=== PATIENT | male | born 1940 | race Caucasian/White ===

== ENCOUNTER 2019-05-15 12:34 | Inpatient (IN) | payer OTHER ==
[2019-05-15] VITALS: BP 132/70; BP 142/73
[~2019-05-15] VITALS: Ht 180.3 cm; Wt 100.0 kg
[2019-05-15] MEDS ORDERED: TOPROL XL25 MG PO (12:46)
[2019-05-15] MEDS ORDERED: CRESTOR10 MG PO (12:47)
[2019-05-15] MEDS ORDERED: FUROSEMIDE20 MG PO (12:47)
[2019-05-15] MEDS ORDERED: ELIQUIS5 MG PO (12:47)
[2019-05-15] MEDS ORDERED: SYMBICORT 16010.2 GM INH (12:52)
[2019-05-15] MEDS ORDERED: ALBUTEROL SULF8.5 GM INH (12:52)
[2019-05-15] MEDS ORDERED: SPIRIVA18 MCG INH (12:52)
[2019-05-15 13:16] LABS: BASOPHILS 0.4 % (0-2); EOSINOPHILS 0.8 % (0-7); HEMATOCRIT 34.1 % (42.0-54.0); HEMOGLOBIN 9.5 g/dL (13.5-17.5); IMMATURE GRANULOCYTES 0.2 % (0-5); LYMPHOCYTES 14.2 % (15-50); MCH 22.4 pg (26.0-34.0); MCHC 27.9 g/dL (31.0-37.0); MCV 80.2 fL (80.0-100.0); MEAN PLATELET VOLUME 9.9 fL (7.4-10.4); MONOCYTES 13.5 % (2-11); NEUTROPHILS 70.9 % (40-80); PLATELET COUNT 174 10x3/uL (130-400); RBC 4.25 10x6/uL (4.20-6.10); RDW 16.3 % (11.5-14.5); WBC 11.1 10x3/uL (4.8-10.8)
[2019-05-15 13:26] LABS: APTT 33.6 SECONDS (22.8-39.4); INR 2.22 (0.85-1.17); PROTIME 23.9 SECONDS (11.6-15.0)
[2019-05-15 13:40] LABS: ALBUMIN 3.1 g/dL (3.4-5.0); ALKALINE PHOSPHATASE 135 U/L (46-116); BILIRUBIN - TOTAL 2.66 mg/dL (0.2-1.3); CALC OSMOLALITY 283 mosm/kg (275-300); CALCIUM 9.1 mg/dL (8.5-10.1); CHLORIDE - SERUM 98 mmol/L (98-107); CREATINE KINASE 27 UL (21-232); CREATININE - SERUM 1.6 mg/dL (0.6-1.3); GLUCOSE 132 mg/dL (74-106); POTASSIUM - SERUM 4.3 mmol/L (3.5-5.1); PRO BNP 5457 pg/mL (0-450); PROTEIN - SERUM 7.6 g/dL (6.4-8.2); SODIUM 140 mmol/L (136-145); TROPONIN-I < 0.017 ng/mL (0.000-0.060); UREA NITROGEN 21 mg/dL (7-18); eGFR NON AFRICAN AMERICAN 45 mL/min (90-120)
[2019-05-15 13:42] LABS: CARBON DIOXIDE 40.7 mmol/L (21.0-32.0)
[2019-05-15 14:00] VITALS: BP 122/64
[2019-05-15 14:02] LABS: ALT (SGPT) 16 U/L (10-68); CKMB 0.7 U/L (0.0-3.6)
[2019-05-15 15:00] VITALS: BP 132/60
[2019-05-15 15:30] VITALS: BP 125/71
[2019-05-15 16:04] VITALS: BP 157/76
--- NOTE | 2019-05-15 16:51 | NUR ---
ARRIVE TO ROOM VIA STRETCHER FROM ER ACCOMPANIED BY STAFF. ALERT AND ORIENTED X4. REPORTS SEVERE WEAKNESS. REFUSE TO STAND ON STANDING SCALE FOR WEIGHT DUE TO WEAKNESS. NOT ENOUGH TELEMETRY MONITORS AT THIS TIME PER OCT DAIRY HELPER. SCDs ON. CONTINUE ADMISSION PROCESS AND SAFETY PRECAUTIONS.
--- NOTE | 2019-05-15 17:09 | NUR ---
UNABLE TO ADD PHARMACY. PATIENT STATES, "[facility]
[2019-05-15 17:43] VITALS: BP 157/76; BMI 31.0
--- NOTE | 2019-05-15 19:26 | NUR ---
WAS RESTING EARLIER ROUNDED NOW AND APPLIED TELEMETRY LCTA SKIN WARM AND DRY ASSISTED WITH COMFORT BED IS LOW AND LOCKED AND SR X2 AIR FLOW IS A BIT DEMINISHED ALL BASES O2 AT 4L/NC RT HAND SL SCD APPLIED ORDERED WELL
--- NOTE | 2019-05-16 03:31 | NUR ---
I have reviewed this patient and I concur with the Shift Assessment completed by the Licensed Practical Nurse today this shift.
[2019-05-16 04:00] VITALS: BP 124/76
[2019-05-16 07:14] LABS: BASOPHILS 0 % (0-2); EOSINOPHILS 0 % (0-7); HEMATOCRIT 29.4 % (42.0-54.0); HEMOGLOBIN 8.2 g/dL (13.5-17.5); LYMPHOCYTES 13.5 % (15-50); MCHC 27.9 g/dL (31.0-37.0); MCV 78.8 fL (80.0-100.0); MEAN PLATELET VOLUME 10.8 fL (7.4-10.4); MONOCYTES 4.4 % (2-11); NEUTROPHILS 82.1 % (40-80); PLATELET COUNT 190 10x3/uL (130-400); RBC 3.73 10x6/uL (4.20-6.10); RDW 16.6 % (11.5-14.5)
[2019-05-16 07:57] VITALS: BP 132/69
[2019-05-16 08:12] LABS: ANION GAP 9.5 mmol/L (8-16); CALCIUM 8.7 mg/dL (8.5-10.1); CREATININE - SERUM 1.6 mg/dL (0.6-1.3); MAGNESIUM - SERUM 1.9 mg/dL (1.8-2.4); PHOSPHOROUS 4.2 mg/dL (2.5-4.9)
[2019-05-16 08:16] LABS: CARBON DIOXIDE 40.5 mmol/L (21.0-32.0)
[2019-05-16 12:50] VITALS: BP 119/63
[2019-05-16 13:33] VITALS: Ht 180.3 cm; Wt 100.0 kg
--- NOTE | 2019-05-16 14:30 | MORECARE ---
CASE MANAGEMENT DISCHARGE SUMMARY PATIENT: SHERRY HOBSON UNIT: [id number] ADM DATE: 05/15/19 AGE: 78 : 40 SEX: M ROOM/BED: D.2105 AUTHOR: KARINE SANZ PHYSICIAN: REFERRING PHYSICIAN: CHANTEL BECERRA MD DATE OF SERVICE: 05/16/19 Discharge Plan Patient Name: SHERRY HOBSON Facility: [facility]:[place] : 1940 Planned Disposition: [facility] facility Anticipated Discharge Date: Discharge Date: Expected LOS: Initial Reviewer: [email or web address] Initial Review Date: 05/15/2019 Generated: 05/16/19 3:29 pm DCP- Discharge Planning Updated by [email or web address]: Shayna Snyder on 05/15/19 5:[address] Patient has VA and Medicare A/B CM contacted Veronica WILKES @[phone]. Provided required information for patient and MD. Per ER MD, patient is not stable to transfer at this time. Shayna Snyder RN Patient Name: SHERRY HOBSON Page 60035 at 1430 All edits/amendments must be made on the electronic document DICTATION DATE: 05/16/191428 AIRPLANE FIRST OFFICER: RADHA 05/16/191428 RPT#: [id number] DC DATE: STATUS: ADM IN [facility] [address] [place] [address] END OF REPORT
--- NOTE | 2019-05-16 14:42 | MORECARE ---
CASE MANAGEMENT DISCHARGE SUMMARY PATIENT: SHERRY HOBSON UNIT: [id number] ADM DATE: 05/15/19 AGE: 78 : 40 SEX: M ROOM/BED: D.2105 AUTHOR: KARINE SANZ PHYSICIAN: REFERRING PHYSICIAN: CHANTEL BECERRA MD DATE OF SERVICE: 05/16/19 Discharge Plan Patient Name: SHERRY HOBSON Facility: [facility]:[place] : 1940 Planned Disposition: [facility] facility Anticipated Discharge Date: Discharge Date: Expected LOS: Initial Reviewer: [email or web address] Initial Review Date: 05/15/2019 Generated: 05/16/19 3:42 pm DCP- Discharge Planning Updated by [email or web address]: Shayna Snyder on 05/15/19 5:[address] Patient has VA and Medicare A/B CM contacted Veronica WILKES @[phone]. Provided required information for patient and MD. Per ER MD, patient is not stable to transfer at this time. Shayna Snyder RN DCPIA - Discharge Planning Initial Assessment Updated by [email or web address]: Jake Alvarez on 05/16/19 2:31 pm * Is the patient Alert and Oriented? Yes * How many steps to enter\exit or inside your home? 0-O / 1-I * PCP [facility] [place] * [facility] * Preadmission Environment Home with Family * ADLs Independent * Equipment Cane Oxygen Walker * Other Equipment HOME AND PORTABLE OXYGEN [employer] - MEDICAL EQUIPMENT PROVIDER * List name and contact numbers for known caregivers / representatives who currently or will assist patient after discharge: JUDAH HOBSON, SPOUSE, * Verbal permission to speak to the caregivers and representatives has been obtained from the patient. N/A * Community resources currently utilized None * Please name any agencies selected above. NONE * Additional services required to return to the preadmission environment? No * Can the patient safely return to the preadmission environment? Yes * Has this patient been hospitalized within the prior 30 days at any hospital? No Last DP export: 05/16/19 1:30 p Patient Name: SHERYR HOBSON Page 35889 at 1442 All edits/amendments must be made on the electronic document DICTATION DATE: 05/16/191441 WELDER/FABRICATOR: RADHA 05/16/191441 RPT#: [id number] DC DATE: STATUS: ADM IN [facility] [address] [place] [address] END OF REPORT
--- NOTE | 2019-05-16 15:10 | MORECARE ---
CASE MANAGEMENT DISCHARGE SUMMARY PATIENT: SHERRY HOBSON UNIT: [id number] ADM DATE: 05/15/19 AGE: 78 : 40 SEX: M ROOM/BED: D.2108 AUTHOR: YVON,DOC PHYSICIAN: REFERRING PHYSICIAN: CHANTEL BECERRA MD DATE OF SERVICE: 05/16/19 Discharge Plan Patient Name: SHERRY HOBSON Facility: [facility]:[place] : 1940 Planned Disposition: VA facility Anticipated Discharge Date: Discharge Date: Expected LOS: Initial Reviewer: [email or web address] Initial Review Date: 05/15/2019 Generated: 05/16/19 4:10 pm Comments DCP- Discharge Planning Updated by [email or web address]: Jake Alvarez on 05/16/19 2:[address] Patient Name: SHERRY HOBSON Admission Status: ER Accout number: [id number] Admission Date: 05-15-2019 : 1940 Admission Diagnosis:SHORTNESS OF BREATH Attending: CHANTEL BECERRA Current LOS: 1 Anticipated DC Date: Planned Disposition: [facility] facility Primary Insurance: [employer] ADMINISTRATION PLANNED EXTERNAL P Discharge Planning Comments: CM MET WITH PT IN ROOM TO DISCUSS DISCHARGE PLANNING AND NEEDS. PT REPORTS LIVING AT HOME INDEPENDENTLY WITH HIS . PT HAS HOME AND PORT[facility]GEN FROM [facility]. PT HAS NO OUTSIDE SERVICES ASSISTING IN THE HOME. CM DISCUSSED AVAILABILITY OF HOME HEALTH, REHAB SERVICES AND MEDICAL EQUIPMENT. PT DENIES DISCHARGE NEEDS, IS WILLING FOR VA TRANSFER AND DOES NOT KNOW IF THE VA WAS CONTACTED. PT REPORTS BEING SENT TO THE ER FROM THE [place] [facility]. CM CALLED [place] EXPEDITOR, , SPOKE TO YUNI WHO ADVISED THAT PT IS ALREADY ON THE TRANSFER LIST, CM UPDATED UNIT INFORMATION FOR TRANSFER IF BED BECOMES AVAILABLE. CM TO CONTINUE TO FOLLOW AND ASSIST NEEDED. Shellfish Dredge Operator: Jake Alvarez DCP- Discharge Planning Updated by [email or web address]: Shayna Snyder on 05/15/19 5:[address] Patient has VA and Medicare A/B CM contacted Veronica WILKES @[phone]. Provided required information for patient and MD. Per ER MD, patient is not stable to transfer at this time. Shayna Snyder RN DCPIA - Discharge Planning Initial Assessment Updated by [email or web address]: Jake Alvarez on 05/16/19 2:31 pm * Is the patient Alert and Oriented? Yes * How many steps to enter\exit or inside your home? 0-O / 1-I * PCP [place] [facility] [place] * [facility] * Preadmission Environment Home with Family * ADLs Independent * Equipment Cane Oxygen Walker * Other Equipment HOME AND PORTABLE OXYGEN [employer] - MEDICAL EQUIPMENT PROVIDER * List name and contact numbers for known caregivers / representatives who currently or will assist patient after discharge: JUDAH HOBSON, SPOUSE, * Verbal permission to speak to the caregivers and representatives has been obtained from the patient. N/A * Community resources currently utilized None * Please name any agencies selected above. NONE * Additional services required to return to the preadmission environment? No * Can the patient safely return to the preadmission environment? Yes * Has this patient been hospitalized within the prior 30 days at any hospital? No Last DP export: 05/16/19 1:42 p Patient Name: SHERRY HOBSON Page 19520 at 1510 All edits/amendments must be made on the electronic document DICTATION DATE: 05/16/191509 CARBURETOR SPECIALIST: RADHA 05/16/191509 RPT#: [id number] DC DATE: STATUS: ADM IN [facility] [address] [place] [address] END OF REPORT
[2019-05-16 16:52] VITALS: BP 128/64
--- NOTE | 2019-05-16 19:25 | NUR ---
AWAKE AND ALERT REQUIRED BED CHANGE AT THIS TIME DUE TO INCONTANACE OF URINE LCTA DEMINISHED LOWER BASES SKIN WARM AND DRY O2 AT 3.5L/MBED IS LOW AND LOCKED AND CALL LIGHT IN REACH OF PT PT WAS ABLE TO AMBULATE EASIER TO REST ROOM THEN PREVIOUS NIGHT TOLERATED ALL WELL
[2019-05-16 20:00] VITALS: BP 127/60
[2019-05-17] VITALS: BP 130/62
[2019-05-17 04:00] VITALS: BP 136/64
[2019-05-17 05:39] LABS: BASOPHILS 0.1 % (0-2); EOSINOPHILS 0.2 % (0-7); HEMOGLOBIN 7.9 g/dL (13.5-17.5); IMMATURE GRANULOCYTES 0.3 % (0-5); LYMPHOCYTES 14.7 % (15-50); MCH 22.4 pg (26.0-34.0); MCHC 28.2 g/dL (31.0-37.0); MCV 79.3 fL (80.0-100.0); MEAN PLATELET VOLUME 10.4 fL (7.4-10.4); MONOCYTES 10.4 % (2-11); NEUTROPHILS 74.3 % (40-80); PLATELET COUNT 198 10x3/uL (130-400); RBC 3.53 10x6/uL (4.20-6.10); RDW 16.7 % (11.5-14.5)
[2019-05-17 06:08] LABS: CALCIUM 8.7 mg/dL (8.5-10.1); CREATININE - SERUM 1.6 mg/dL (0.6-1.3); POTASSIUM - SERUM 3.7 mmol/L (3.5-5.1)
[2019-05-17 06:39] LABS: WBC 9.9 10x3/uL (4.8-10.8)
[2019-05-17 06:47] LABS: ANION GAP 2.8 mmol/L (8-16)
[2019-05-17 06:48] LABS: CARBON DIOXIDE 47.9 mmol/L (21.0-32.0)
--- NOTE | 2019-05-17 07:28 | NUR ---
INITIAL ROUNDING, BEDSIDE SHIF REPORT COMPLETE. PATIENT IS AWAKE, SEMI FOWLERS POSITION, DENIES PAIN, O2 AND SCD'S IN PLACE, HE IS CURRENTLY HAVING A BREATHING TREATMENT. TELE MOITOR IN PLACE. HE DENIES ANY NEEDS, CALL LIGHT IN REACH
[2019-05-17 08:30] VITALS: BP 110/67
[2019-05-17 12:59] VITALS: BP 120/60
[2019-05-17 16:04] VITALS: BP 123/72
--- NOTE | 2019-05-17 16:21 | NUR ---
UA COLLECTED AND TAKEN TO LAB
[2019-05-17 17:21] LABS: APPEARANCE CLEAR (CLEAR); BILIRUBIN NEGATIVE (NEGATIVE); COLOR STRAW (YELLOW); GLUCOSE NEGATIVE (NEGATIVE); KETONE NEGATIVE (NEGATIVE); NITRITE NEGATIVE (NEGATIVE); PROTEIN NEGATIVE (NEGATIVE); UROBILINOGEN NORMAL (NORMAL)
[2019-05-17 17:26] LABS: BACTERIA FEW /hpf (NONE SEEN); RED CELLS - URINE OCC /hpf (0-5); WHITE CELLS - URINE 0-5 /hpf (0-5)
[2019-05-17 20:00] VITALS: BP 114/63
--- NOTE | 2019-05-17 20:06 | NUR ---
EVENING ROUNDS COMPLETED. VSS, AAOX4, PT IN BED WITH EYES OPEN. ASSIST PT TO EMPTY USRINAL. PT PUT 350CC'S. PT DENIES ANY FURTHER NEEDS AT THIS TIME. WILL CPOC. CL WITHIN REACH.
[2019-05-18] VITALS: BP 141/73
[2019-05-18 04:00] VITALS: BP 143/71
[2019-05-18 05:39] LABS: BASOPHILS 0.3 % (0-2); HEMATOCRIT 31.4 % (42.0-54.0); HEMOGLOBIN 8.7 g/dL (13.5-17.5); IMMATURE GRANULOCYTES 0.2 % (0-5); LYMPHOCYTES 25.2 % (15-50); MCH 22.1 pg (26.0-34.0); MCHC 27.7 g/dL (31.0-37.0); MCV 79.7 fL (80.0-100.0); MEAN PLATELET VOLUME 10.6 fL (7.4-10.4); MONOCYTES 11.9 % (2-11); NEUTROPHILS 60.4 % (40-80); PLATELET COUNT 210 10x3/uL (130-400); RBC 3.94 10x6/uL (4.20-6.10); RDW 16.9 % (11.5-14.5); WBC 9.7 10x3/uL (4.8-10.8)
[2019-05-18 05:55] LABS: CALCIUM 8.8 mg/dL (8.5-10.1); CREATININE - SERUM 1.8 mg/dL (0.6-1.3); POTASSIUM - SERUM 3.7 mmol/L (3.5-5.1)
[2019-05-18 06:23] LABS: ANION GAP 4.3 mmol/L (8-16)
[2019-05-18 06:24] LABS: CARBON DIOXIDE 48.4 mmol/L (21.0-32.0)
--- NOTE | 2019-05-18 07:30 | NUR ---
PT RESTING LATERAL WITH BED AT AN INCLINE, BIPAP MACHINE PLACED BY RT THIS MORNING, INSTRUCTED TO LEAVE IN PLACE UNTIL RT RETURNS TO TAKE IT OFF. PT IS RESTING COMFORTABLY WITH EYES CLOSED, BREATHING EVEN AND UNLABORED NO S/S OF DISTRESS NOTED. WILL CTM.
[2019-05-18 09:23] VITALS: BP 129/75
--- NOTE | 2019-05-18 11:00 | NUR ---
ADMINISTERED MEDICATION AT THIS TIME, NO TROUBLE SWALLOWING. HELPED PT READJUST IN BED. FAMILY AT BED SIDE. DENIES ANY NEEDS AT THIS TIME. PT IS WEARING SCD'S. BED IN LOWEST POSITION, BED RAILS X2, CALL LIGHT WITHIN REACH. WILL CTM.
--- NOTE | 2019-05-18 11:46 | NUR ---
DR. TYLER INSTRUCTED TO LOWER PT NASAL CANNULA OXYGEN FROM 4L TO 2L. I TURNED PT OXYGEN DOWN TO 3L, WILL TURN DOWN TO 2L IF TOLERATED. DENIES ANY NEEDS. WILL CTM.
[2019-05-18 13:30] VITALS: BP 110/61
--- NOTE | 2019-05-18 15:02 | NUR ---
ADMINISTERED PRN HYDRALAZINEFOR ELEVATED BP. PT HAD NO TROUBLE SWALLOWING. SITTING IN BEDSIDE CHAIR, REFUSES TO GET BACK IN BED. DENIES ANY NEEDS. WILL CTM.
--- NOTE | 2019-05-18 16:08 | NUR ---
PT RESTING COMFORTABLY IN BED WITH EYES CLOSED, BREATHING EVEN AND UNLABORED. NO S/S OF DISTRESS NOTED. BED IN LOWEST POSITION, BED RAILS X2, CALL LIGHT WITHIN REACH. WILL CTM.
--- NOTE | 2019-05-18 16:28 | NUR ---
ADMINISTERED IV LASIX AT THIS TIME OVER 3 MINUTES, TOLERATED WELL. DENIES ANY NEEDS AT THIS TIME. WILL CTM.
[2019-05-18 17:29] VITALS: BP 107/67
--- NOTE | 2019-05-18 19:50 | NUR ---
ROUND COMPLETED. VSS. AAOX4, PT C/O OF LOWER ABDOMINAL PAIN. STATES HE HAS BEEN TRYING TO EMPTY HIS BLADDER ALL DAY BUT HE IS GETTING LITTLE OR NO URINE. HE STATES HE USUALLY HAVE THIS EPISODE AT HOME PRIOR TO ADMISSION TO THE HOSPITAL. HE ALSO STATES HIS PRIMARY DOCTOR PROVIDED HIM WITH A COUDE CATH TO DRAIN HIS URINE AT HOME, WHENEVER HE HAVE SUCH EPISODES. HE C/O PAIN IN HIS LOWER ABDOMEN AT THIS TIME. PT DENIES ANY FURTHER NEEDS FOR COMFORT CARE. WILL PERFORM A BLADDER SCAN TO RULE OUT URINARY RETENTION. CL WITHIN REACH. CONTNUOS O2 MONITOR IN PLACE. PROVIDED PT A BEDSIDE COMODE AT THIS TIME. WILL CTM.
[2019-05-18 20:00] VITALS: BP 149/74
--- NOTE | 2019-05-18 20:00 | NUR ---
PERFORMED A BLADDER ON PT. PT IS RETAINING 700CC'S AT THIS TIME. WILL NOTIFY SOLAR INSTALLATION CREW SUPERVISOR, DUE TO PT'S HX OF BPH.
--- NOTE | 2019-05-18 20:22 | NUR ---
DEL RAJAN STATES TO TRY TO USE A COUDE 16F ON PT TO DRAIN BLADDER AND LEAVE IT IN. HE ALSO ORDERED 2MG IV MORPHINE PRN Q4HRS. AND TO GIVE A ONE TIME DOSE IF NEEDED PRIOR TO GARLAND INSERTION.
--- NOTE | 2019-05-18 20:30 | NUR ---
TRIED TO INSERT A COUDE WITHOUT ANY SUCCESS. PT HAD MINIMAL BLEEDING ON TIP OF CATH, APPEARS LIKE BLOOD CLOT. DID NOT PROCEED FURTHER DUE TO PT'S HX OF BPH. NOTIFIED SATINDER MATHIS. HE STATES TO CONSULT UROLOGY, DR. LAMA. UROLOGY CONSULTED AND PAGED. AWAITING RESPONSE.
--- NOTE | 2019-05-18 21:23 | NUR ---
DR. LAMA STATES TO PREP PT FOR EMERGENCY SURGERY. PT PREPPED. CONSENT SIGNED. AWAITING OR TEAM. HEALTH SUPPORT SPECIALIST STATES OR TEAM WAS PAGED AND READY FOR PROCEDURE.
--- NOTE | 2019-05-18 22:20 | NUR ---
PT OUT FOR GARLAND CATH INSERION WITH POSSIBLE CYSTOSCOPY. ELIQUIS AND OTHER PM MEDS WILL RESTART NEXT DOSE.
--- NOTE | 2019-05-18 23:20 | NUR ---
PT BACK FROM OR. RECIEVED REPORT FROM NATALIIA MARIANO. STATES PT WAS GIVEN ANCEF, PROPOFOL AND FENTANYL @ PROCEDURE. VSS ON ARRIVAL TO UNIT, STILL APPEARS MINIMALLY SEDATED. O2SAT OF 90. GARLAND INTACT, BLOODY URINE NOTED ON ASSESSMENT. WILL NOTIFY RESP THERAPIST TO RESTART BIPAP. SCD'S AND GARLAND ON. PT DENIES ANY FURHTER NEEDS AT THIS TIME. 1050CC'S INITIAL OUTPUT WAS OBTAINED IN OR. WILL CTM. CL WITHIN REACH, BED IN LOW, SR UP X2.
[2019-05-19] VITALS: BP 116/56
--- NOTE | 2019-05-19 | NUR ---
PT PLACED ON BIPAP. NO S/S OF DISTRESS. WILL CTM.
[2019-05-19 04:00] VITALS: BP 109/54
[2019-05-19 05:28] LABS: BASOPHILS 0.2 % (0-2); EOSINOPHILS 1.4 % (0-7); HEMATOCRIT 30.7 % (42.0-54.0); HEMOGLOBIN 8.4 g/dL (13.5-17.5); IMMATURE GRANULOCYTES 0.2 % (0-5); LYMPHOCYTES 14.9 % (15-50); MCH 21.8 pg (26.0-34.0); MCHC 27.4 g/dL (31.0-37.0); MCV 79.7 fL (80.0-100.0); MEAN PLATELET VOLUME 9.9 fL (7.4-10.4); MONOCYTES 12.8 % (2-11); NEUTROPHILS 70.5 % (40-80); PLATELET COUNT 191 10x3/uL (130-400); RBC 3.85 10x6/uL (4.20-6.10); RDW 16.8 % (11.5-14.5); WBC 9.4 10x3/uL (4.8-10.8)
[2019-05-19 05:49] LABS: ANION GAP 2.7 mmol/L (8-16); CALCIUM 8.6 mg/dL (8.5-10.1); CREATININE - SERUM 2.1 mg/dL (0.6-1.3); POTASSIUM - SERUM 3.4 mmol/L (3.5-5.1)
[2019-05-19 05:52] LABS: CARBON DIOXIDE 47.7 mmol/L (21.0-32.0)
--- NOTE | 2019-05-19 06:56 | NUR ---
PT RESTING IN BED AT THIS TIME. NO S/S OF DISTRESS. PT DENIES ANY FURTHER NEEDS AT THIS TIME. BIPAP OFF O2 @ 4L. 02SAT @ 95. WILL CPOC.
--- NOTE | 2019-05-19 07:45 | NUR ---
A/A/OX4. DENIES ANY PAIN AT PRESENT TIME AND NO REQUESTS VOICED. GARLAND PATENT AND DRAINING BLOODY URINE TO BEDSIDE DRAINAGE. SL PATENT TO RIGHT HAND WITH REDNESS OR EDEMA AT SITE. 02 AT 4L/M PER N/C. CONTINUOUS PULSE OX IN PLACE WITH READING OF 96. 02 DOWN TO 3.5 L/M TO WEAN ORDERED. BED IN LOW LOCKED POSITION, CALL LIGHT IN REACH AND SIDE RAILS UP X 2. ASSESSMENT COMPLETED AND WILL CONTINUE POC.
--- NOTE | 2019-05-19 08:50 | OP ---
PATIENT NAME: SHERRY HOBSON MEDICAL RECORD: [id number] :[birth year] LOCATION:D.M2 D.2105 ADMISSION DATE:05/15/19 SURGEON: WILLIAM LAMA MD DATE OF OPERATION: 05/18/2019 SURGEON: William Lama MD ANESTHESIA: General anesthesia by Edward Partida CRNA DIAGNOSES: Urinary retention with acute renal failure due to obstructive benign prostatic hyperplasia. PROCEDURES: Cystoscopy, Quevedo catheter insertion over a guidewire. FINDINGS: Obstructive benign prostatic hypertrophy with bilateral lateral lobe hyperplasia, minimal median lobe. Single ureteral orifices bilaterally with no bladder tumors seen. Postvoid residual 1050 mL. BLOOD LOSS: None. CLINICAL HISTORY: This is a 78-year-old male, who was admitted to hospital for COPD exacerbation. He has a history of BPH, which is being treated at the [facility] with medications. Today, he was unable to void and this was finally noticed by the nurse who came on shift in the evenings. A bladder scan that was done by his nurse showed that the bladder held over 700 mL of urine. Attempts to place an indwelling Quevedo catheter using a coude catheter were unsuccessful. Therefore, the urological consultation was called around 9:30 p.m. today. I have called the OR crew for a cystoscopy with insertion of the Quevedo catheter over a guidewire. The patient is on Eliquis for atrial fibrillation. I have also noted that he last ate at 5:00 p.m. when he had dinner. Since we are only about 4 hours since that time, the SEW OUT OPERATOR will be giving him general anesthetic. We gave him Ancef 2 grams IV online marketing analyst to the OR. DESCRIPTION OF PROCEDURE: The patient was given induction of general anesthesia in supine position. He was then placed into dorsal lithotomy position and prepped and draped. We used a 21-Slovak cystoscope with 30-degree lens for visualization. The prostatic urethra was long and obstructive in the lateral lobes. There was no significant median lobe. Going into the bladder, no bladder tumors were seen. There are single ureteral orifices on each side. A Sensor wire was placed through the scope into the bladder. The scope was then removed, leaving the wire in place. Over the wire, we inserted a 16-Slovak nottaw[place]ppi [place] tip Quevedo catheter. Once the Quevedo catheter was entirely in the bladder, we inflated the balloon with 10 cc of sterile water. The wire was then withdrawn entirely. The catheter was put to bag drainage. The patient will be brought back to the recovery room and then to his room in the hospital. TRANSINT:[id number] Voice Confirmation ID: [id number] DOCUMENT ID: [id number] OPERATIVE REPORT [id number] SHERRY HOBSON ROBERT S MD at 0850 CC: [id number] DICTATION DATE: 05/18/192302 MEMBERSHIP SALES MANAGER: 05/18/19 2340 ADM IN [place] [id number] [place] [id number]
[2019-05-19 09:58] VITALS: BP 114/60
--- NOTE | 2019-05-19 12:44 | NUR ---
Nutrition Follow-up: Pt continues to report good appetite/PO intake. Diet: Regular Wt: 222# Last BM: 05/18 Labs reviewed Meds reviewed Rec cardiac diet. [place] food preferences. RD following.
--- NOTE | 2019-05-19 12:45 | NUR ---
LARGE AMT OF BLOOD NOTED UNDER TAPE OF SL. REDRESSED AND IS STILL IN PLACE AND FLUSHES WELL.
--- NOTE | 2019-05-19 14:18 | NUR ---
Rehab Prescreening Consult recieved and the chart has been reviewed. [facility] which [facility] acute rehab does not have a contract with. Discussed with the CM Jaquan Alvarez. Abida Hoang RN Clinical Liaison, Rehab
--- NOTE | 2019-05-19 14:50 | MORECARE ---
CASE MANAGEMENT DISCHARGE SUMMARY PATIENT: SHERRY HOBSON UNIT: [id number] ADM DATE: 05/15/19 AGE: 78 : 40 SEX: M ROOM/BED: D.2108 AUTHOR: YVON,DOC PHYSICIAN: REFERRING PHYSICIAN: CHANTEL BECERRA MD DATE OF SERVICE: 05/19/19 Discharge Plan Patient Name: SHERRY HOBSON Facility: [facility]:[place] : 1940 Planned Disposition: Home Anticipated Discharge Date: 05/19/19 Discharge Date: Expected LOS: 4 Initial Reviewer: [email or web address] Initial Review Date: 05/15/2019 Generated: 05/19/19 3:49 pm DCP- Discharge Planning Updated by [email or web address]: Jake Alvarez on 05/16/19 2:[address] Patient Name: SHERRY HOBSON Admission Status: ER Accout number: [id number] Admission Date: 05-15-2019 : 1940 Admission Diagnosis:SHORTNESS OF BREATH Attending: CHANTEL BECERRA Current LOS: 1 Anticipated DC Date: Planned Disposition: [facility] facility Primary Insurance: [employer] ADMINISTRATION PLANNED EXTERNAL P Discharge Planning Comments: CM MET WITH PT IN ROOM TO DISCUSS DISCHARGE PLANNING AND NEEDS. PT REPORTS LIVING AT HOME INDEPENDENTLY WITH HIS . PT HAS HOME AND PORTABLE OXYGEN FROM THE [facility]. PT HAS NO OUTSIDE SERVICES ASSISTING IN THE HOME. CM DISCUSSED AVAILABILITY OF HOME HEALTH, REHAB SERVICES AND MEDICAL EQUIPMENT. PT DENIES DISCHARGE NEEDS, IS WILLING FOR VA TRANSFER AND DOES NOT KNOW IF THE VA WAS CONTACTED. PT REPORTS BEING SENT TO THE ER FROM THE [place] [facility]. CM CALLED [place] EXPEDITOR, , SPOKE TO YUNI WHO ADVISED THAT PT IS ALREADY ON THE TRANSFER LIST, CM UPDATED UNIT INFORMATION FOR TRANSFER IF BED BECOMES AVAILABLE. CM TO CONTINUE TO FOLLOW AND ASSIST NEEDED. First Aid Teacher: Jake Alvarez DCP- Discharge Planning Updated by [email or web address]: Shayna Snyder on 05/15/19 5:[address] Patient has VA and Medicare A/B CM contacted Veronica WILKES @[phone]. Provided required information for patient and MD. Per ER MD, patient is not stable to transfer at this time. Shayna Snyder RN DCPIA - Discharge Planning Initial Assessment Updated by [email or web address]: Jake Alvarez on 05/16/19 2:31 pm * Is the patient Alert and Oriented? Yes * How many steps to enter\exit or inside your home? 0-O / 1-I * PCP [facility] [place] * [facility]acy [facility] * Preadmission Environment Home with Family * ADLs Independent * Equipment Cane Oxygen Walker * Other Equipment HOME AND PORTABLE OXYGEN [employer] - MEDICAL EQUIPMENT PROVIDER * List name and contact numbers for known caregivers / representatives who currently or will assist patient after discharge: JUDAH HOBSON, SPOUSE, * Verbal permission to speak to the caregivers and representatives has been obtained from the patient. N/A * Community resources currently utilized None * Please name any agencies selected above. NONE * Additional services required to return to the preadmission environment? No * Can the patient safely return to the preadmission environment? Yes * Has this patient been hospitalized within the prior 30 days at any hospital? No Last DP export: 05/16/19 2:10 p Patient Name: SHERRY HOBSON Page 85037 at 1450 All edits/amendments must be made on the electronic document DICTATION DATE: 05/19/191448 TREAD CUTTER: RADHA 05/19/191448 RPT#: [id number] DC DATE: STATUS: ADM IN [facility] [address] [place] [address] END OF REPORT
--- NOTE | 2019-05-19 14:58 | MORECARE ---
CASE MANAGEMENT DISCHARGE SUMMARY PATIENT: SHERRY HOBSON UNIT: [id number] ADM DATE: 05/15/19 AGE: 78 : 40 SEX: M ROOM/BED: D.2105 AUTHOR: YVON,DOC PHYSICIAN: REFERRING PHYSICIAN: CHANTEL BECERRA MD DATE OF SERVICE: 05/19/19 Discharge Plan Patient Name: SHERRY HOBSON Facility: [facility]:[place] : 1940 Planned Disposition: Home Anticipated Discharge Date: 05/19/19 Discharge Date: Expected LOS: 4 Initial Reviewer: [email or web address] Initial Review Date: 05/15/2019 Generated: 05/19/19 3:57 pm Comments DCP- Discharge Planning Updated by [email or web address]: Jake Alvarez on 05/19/19 1:[address] Patient Name: SHERRY HOBSON Encounter No: [id number] : 1940 Primary Insurance: [employer]ISTRATION Anticipated DC Date: 05-19-2019 Planned Disposition: Home DCP follow-up note: CM RECEIVED ORDER FOR INPATIENT REHAB, CM SPOKE TO PT IN ROOM REGARDING INPATIENT REHAB AT THE [facility] AND [facility]OUGH THE [place]. PT REFUSED TO LET CM ATTEMPT TO SEND HIM TO THE [facility]PATIENT OR [facility] RE[facility]AB. PT STATES HE WILL GO HOME AND HIS MAY PAY PRIVATELY FOR OUTPATIENT REHAB AT [facility]. PT AND SPOUSE DENIED DISCHARGE NEEDS AT THIS TIME. PT HAS CM CONTACT NUMBER AND CM INSTRUCTED PT AND SPOUSE TO CALL CM IF THERE IS ANYTHING CM CAN DO FOR THEM. PT PLANS TO DISCHARGE HOME WITH . DR. BECERRA NOTIFIED. BETTIE Durant MANGEMENT DCP- Discharge Planning Updated by [email or web address]: Jake Alvarez on 05/16/19 2:[address] Patient Name: SHERRY HOBSON Admission Status: ER Accout number: [id number] Admission Date: 05-15-2019 : 1940 Admission Diagnosis:SHORTNESS OF BREATH Attending: CHANTEL BECERRA Current LOS: 1 Anticipated DC Date: Planned Disposition: [place] facility Primary Insurance: [facility] [place] ADMINISTRATION PLANNED EXTERNAL P Discharge Planning Comments: CM MET WITH PT IN ROOM TO DISCUSS DISCHARGE PLANNING AND NEEDS. PT REPORTS LIVING AT HOME INDEPENDENTLY WITH HIS . PT [facility] HOME AND [facility]GEN [facility]. PT HAS NO OUTSIDE SERVICES ASSISTING IN THE HOME. CM DISCUSSED AVAILABILITY OF HOME HEALTH, REHAB SERVICES AND MEDICAL EQUIPMENT. PT DENIES DISCHARGE NEEDS, IS WILLING FOR VA TRANSFER AND DOES NOT KNOW IF THE VA WAS CONTACTED. PT RE[place]TS BEING S[facility] [place] [facility] [place] [facility]. CM CALLED [place] EXPEDIT[place], , SPOKE TO YUNI WHO ADVISED THAT PT IS ALREADY ON THE TRANSFER LIST, CM UPDATED UNIT INFORMATION FOR TRANSFER IF BED BECOMES AVAILABLE. CM TO CONTINUE TO FOLLOW AND ASSIST NEEDED. Family Practice Physician: Jake Alvarez DCP- Discharge Planning Updated by [email or web address]: Shayna Snyder on 05/15/19 5:[address] Patient has [facility] and Medicare A/B CM contacted Veronica CHUNG @[phone]. Provided required information for patient and MD. Per ER MD, patient is not stable to transfer at this time. Shayna Snyder RN DCPIA - Discharge Planning Initial Assessment Updated by [email or web address]: Jake Alvarez on 05/16/19 2:31 pm * Is the patient Alert and Oriented? Yes * How many steps to enter\exit or inside your home? 0-O / 1-I * PCP [facility] [place] * [facility]acy [facility] * Preadmission Environment Home with Family * ADLs Independent * Equipment Cane Oxygen Walker * Other Equipment HOME AND PORTABLE OXYGEN [employer] - MEDICAL EQUIPMENT PROVIDER * List name and contact numbers for known caregivers / representatives who currently or will assist patient after discharge: JUDAH HOBSON, SPOUSE, * Verbal permission to speak to the caregivers and representatives has been obtained from the patient. N/A * Community resources currently utilized None * Please name any agencies selected above. NONE * Additional services required to return to the preadmission environment? No * Can the patient safely return to the preadmission environment? Yes * Has this patient been hospitalized within the prior 30 days at any hospital? No Last DP export: 05/19/19 1:50 p Patient Name: SHERRY HOBSON Page 98230 at 2931 All edits/amendments must be made on the electronic document DICTATION DATE: 05/19/191456 ADMINISTRATIVE ASSOCIATE: RADHA 05/19/191456 RPT#: [id number] DC DATE: STATUS: ADM IN [facility] [address] [place] [address] END OF REPORT
--- NOTE | 2019-05-19 17:13 | NUR ---
HAVE WEANED PT DOWN TO 2L/M PER N/C WITH PULSE OX READING 94%. DENIES ANY SOB AT PRESENT TIME, BUT DID GET SOB WHEN AMBULATING WITH PT. AMBULATED 250 FT.
[2019-05-19 17:59] VITALS: BP 105/61
--- NOTE | 2019-05-19 19:23 | NUR ---
REPORT RECEIVED FROM DAY SHIFT, PT CARE ASSUMED. INTRODUCED SELF AND WROTE NAME ON BOARD. PT SITTING UP IN BED, AAOX4. PT DENIES PAIN OR ANY OTHER NEEDS AT THIS TIME. FAMILY AT BEDSIDE. BED IN LOWEST POSITION, SR X2, CALL LIGHT WITHIN REACH. WILL CONTINUE TO MONITOR.
--- NOTE | 2019-05-19 19:50 | NUR ---
EVENING ROUND COMPLETED. AAOX3, VSS, NO S/S OF DISTRESS. BIPAP @ BEDSIDE. 02 4L. O2SAT 95 @ THIS TIME. GARLAND INTACT WITH JENNY COLORED DRAINAGE. PT DENIES ANY NEED FOR PAIN AT THIS TIME. FAMILY @ BEDSIDE. WILL CPOC. CL WITHIN REACH, BED IN LOW, SR UP X2.
[2019-05-19 20:00] VITALS: BP 112/56
--- NOTE | 2019-05-19 22:51 | NUR ---
PT IN BED, RT @ BEDSIDE TO PLACED PT ON BIPAP. PT DENIES ANY NEED FOR COMFORT CARE. WILL CTM.
[2019-05-20] VITALS: BP 99/48
--- NOTE | 2019-05-20 01:34 | NUR ---
PT TOOK OFF HIS BIPAP MACHINE. STATES HE FEELS CLAUSTROPHOBIC. HE STATES HE WILL PUT IT BACK ON WHENEVER HE IS READY. PT CURRENTLY ON 02 @ 4L. SAT 96.
[2019-05-20 04:00] VITALS: BP 110/59
[2019-05-20 05:05] LABS: BASOPHILS 0.2 % (0-2); EOSINOPHILS 3.4 % (0-7); HEMATOCRIT 29.9 % (42.0-54.0); HEMOGLOBIN 8.1 g/dL (13.5-17.5); IMMATURE GRANULOCYTES 0.2 % (0-5); LYMPHOCYTES 15.9 % (15-50); MCHC 27.1 g/dL (31.0-37.0); MEAN PLATELET VOLUME 10.4 fL (7.4-10.4); MONOCYTES 10.5 % (2-11); NEUTROPHILS 69.8 % (40-80); PLATELET COUNT 195 10x3/uL (130-400); RBC 3.69 10x6/uL (4.20-6.10); RDW 16.8 % (11.5-14.5); WBC 8.9 10x3/uL (4.8-10.8)
[2019-05-20 05:14] LABS: ANION GAP 0.4 mmol/L (8-16); CALCIUM 8.6 mg/dL (8.5-10.1); CREATININE - SERUM 1.8 mg/dL (0.6-1.3); POTASSIUM - SERUM 3.4 mmol/L (3.5-5.1)
--- NOTE | 2019-05-20 05:35 | NUR ---
RECIEVED REPORT FROM LAB FOR PT PCO2 OF 50.0. NOTFIED RT. PT STILL NOT READY TO PUT BIPAP ON AT THIS THIS. ON SAT @ 96 ON CONTINUES O2 MONITOR @ BEDSIDE.
--- NOTE | 2019-05-20 07:00 | NUR ---
RECEIVED REPORT. ASSUMED CARE OF PATIENT. CALL LIGHT WITHIN IN REACH. RESTING WITH EYES CLOSED. RESP EVEN AND UNLABORED. NO DISTRESS.
--- NOTE | 2019-05-20 08:31 | NUR ---
K+ REPLACEMENT PROTOCOL INITIATED. LAB ORDERED FOR REDRAW AT 1231
[2019-05-20 09:58] VITALS: BP 108/54
--- NOTE | 2019-05-20 11:56 | NUR ---
PATIENT REQUESTED BIPAP OFF AT THIS TIME. O2 AT 4L/NC ON. FAMILY AT BEDSIDE.
[2019-05-20 14:51] VITALS: BP 110/48
--- NOTE | 2019-05-20 14:55 | NUR ---
PATIENT SITTING UP IN BED. CALL LIGHT WITHIN REACH. RECEIVING BREATHING TREATMENT AT THIS TIME.
--- NOTE | 2019-05-20 15:02 | NUR ---
CHARAN JACOBO PROVIDED UPON REQUEST. NO DISTRESS.
[2019-05-20 17:15] VITALS: BP 114/55
--- NOTE | 2019-05-20 19:08 | MORECARE ---
CASE MANAGEMENT DISCHARGE SUMMARY PATIENT: SHERRY HOBSON UNIT: [id number] ADM DATE: 05/15/19 AGE: 78 : 40 SEX: M ROOM/BED: D.2103 AUTHOR: YVON,DOC PHYSICIAN: REFERRING PHYSICIAN: CHANTEL BECERRA MD DATE OF SERVICE: 05/20/19 Discharge Plan Patient Name: SHERRY HOBSON Facility: [facility]:[place] : 1940 Planned Disposition: Home Anticipated Discharge Date: 05/19/19 Discharge Date: Expected LOS: 4 Initial Reviewer: [email or web address] Initial Review Date: 05/15/2019 Generated: 05/20/19 8:08 pm Comments DCP- Discharge Planning Updated by [id number]: Bridget Araujo on 05/20/19 6:[address] LATE ENTRY [address] DR YOUNG ADVISED THE PATIENT'S WANTS HIM TO GO TO [facility]. THE CAME TO THE DESK. 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 HE STATED TO SEND THE REFERRAL. REPORTEDLY HE IS GOING ON VACATION BUT INSTRUCTED HER TO CALL IF ANY PROBLEMS. ADVISED REFERRAL WILL BE SENT FOR WEDNESDAY. DCP- Discharge Planning Updated by [id number]: Jake Alvarez on 05/19/19 1:[address] Patient Name: SHERRY HOBSON Encounter No: [id number] : 1940 Primary Insurance: [employer] Anticipated DC Date: 05-19-2019 Planned Disposition: Home DCP follow-up note: CM RECEIVED ORDER FOR INPATIENT REHAB, CM SPOKE TO PT IN ROOM REGARDING [facility] [place]. PT REFUSED TO LET CM ATTEMPT TO SEND HIM TO THE [facility]. PT STATES HE WILL GO HOME AND HIS MAY PAY PRIVATELY FOR OUTPATIENT REHAB AT [facility]. PT AND SPOUSE DENIED DISCHARGE NEEDS AT THIS TIME. PT HAS CM CONTACT NUMBER AND CM INSTRUCTED PT AND SPOUSE TO CALL CM IF THERE IS ANYTHING CM CAN DO FOR THEM. PT PLANS TO DISCHARGE HOME WITH . DR. BECERRA NOTIFIED. Jake Alvarez, CASE MANGEMENT DCP- Discharge Planning Updated by [id number]: Jake Alvarez on 05/16/19 2:[address] Patient Name: SHERRY HOBSON Admission Status: ER Accout number: [id number] Admission Date: 05-15-2019 : 1940 Admission Diagnosis:SHORTNESS OF BREATH Attending: CHANTEL BECERRA Current LOS: 1 Anticipated DC Date: Planned Disposition: [facility] facility Primary Insurance: [employer] PLANNED EXTERNAL P Discharge Planning Comments: CM MET WITH PT IN ROOM TO DISCUSS DISCHARGE PLANNING AND NEEDS. PT REPORTS LIVING AT HOME INDEPENDENTLY WITH HIS . [facility]. PT HAS NO OUTSIDE SERVICES ASSISTING IN THE HOME. CM DISCUSSED AVAILABILITY OF HOME HEALTH, REHAB SERVICES AND MEDICAL EQUIPMENT. PT DENIES DISCHARGE NEEDS, IS WILLING FOR VA TRANSFER AND DOES NOT KNOW IF THE VA WAS CONTACTED. PT REPORTS BEING SENT TO THE [facility] [place] [facility]. CM CALLED [facility] EXP[facility], , SPOKE TO YUNI WHO ADVISED THAT PT IS ALREADY ON THE TRANSFER LIST, CM UPDATED UNIT INFORMATION FOR TRANSFER IF BED BECOMES AVAILABLE. CM TO CONTINUE TO FOLLOW AND ASSIST NEEDED. Photography Colorist: Jake Alvarez DCP- Discharge Planning Updated by [id number]: Shayna Snyder on 05/15/19 5:[address] Patient has VA and Medicare A/B CM contacted Veronica WILKES @[phone]. Provided required information for patient and MD. Per ER MD, patient is not stable to transfer at this time. Shayna Snyder RN DCPIA - Discharge Planning Initial Assessment Updated by [id number]: Jake Alvarez on 05/16/19 2:31 pm * Is the patient Alert and Oriented? Yes * How many steps to enter\exit or inside your home? 0-O / 1-I * PCP [facility] [place] [facility]acy [facility] * Preadmission Environment Home with Family * ADLs Independent * Equipment Cane Oxygen Walker * Other Equipment HOME AND PORTABLE OXYGEN [employer] - MEDICAL EQUIPMENT PROVIDER * List name and contact numbers for known caregivers / representatives who currently or will assist patient after discharge: JUDAH HOBSON, SPOUSE, * Verbal permission to speak to the caregivers and representatives has been obtained from the patient. N/A * Community resources currently utilized None * Please name any agencies selected above. NONE * Additional services required to return to the preadmission environment? No * Can the patient safely return to the preadmission environment? Yes * Has this patient been hospitalized within the prior 30 days at any hospital? No Last DP export: 05/19/19 1:58 p Patient Name: SHERRY HOBSON Page 11053 at 1908 All edits/amendments must be made on the electronic document DICTATION DATE: 05/20/191907 MANAGER CLINICAL RESEARCH: RADHA 05/20/191907 RPT#: [id number] DC DATE: STATUS: ADM IN [facility] [address] [place] [address] END OF REPORT
--- NOTE | 2019-05-20 19:56 | NUR ---
EVENING ROUNDS COMPLETED. REPORT RECEIVED. PT SITTING UP IN BED WITH EYES OPEN, RR EVEN AND UNLABORED. BED IN LOW POSITION. NO S/S OF DISTRESS NOTED. INTRODUCED SELF TO PT. PT DENIES FURTHER NEEDS AT THIS TIME. FAMILY AT BEDSIDE. 98 CONTROLLED AFIB ON TELEMETRY. CALL LIGHT IN REACH. WILL CTM.
[2019-05-20 20:00] VITALS: BP 104/56
[2019-05-21] VITALS: BP 109/54
--- NOTE | 2019-05-21 02:02 | NUR ---
I have reviewed this patient and I concur with the Shift Assessment completed by the Licensed Practical Nurse today this shift.
[2019-05-21 03:39] LABS: BASOPHILS 0.2 % (0-2); EOSINOPHILS 3.6 % (0-7); HEMATOCRIT 28.7 % (42.0-54.0); HEMOGLOBIN 7.7 g/dL (13.5-17.5); IMMATURE GRANULOCYTES 0.2 % (0-5); MCH 21.8 pg (26.0-34.0); MCHC 26.8 g/dL (31.0-37.0); MCV 81.3 fL (80.0-100.0); MEAN PLATELET VOLUME 10.1 fL (7.4-10.4); MONOCYTES 12.4 % (2-11); NEUTROPHILS 67.6 % (40-80); PLATELET COUNT 185 10x3/uL (130-400); RBC 3.53 10x6/uL (4.20-6.10); RDW 17.2 % (11.5-14.5); WBC 9.2 10x3/uL (4.8-10.8)
[2019-05-21 03:43] LABS: ANION GAP 0.5 mmol/L (8-16); CALCIUM 8.7 mg/dL (8.5-10.1); CREATININE - SERUM 1.7 mg/dL (0.6-1.3); POTASSIUM - SERUM 3.4 mmol/L (3.5-5.1)
[2019-05-21 04:00] VITALS: BP 111/60
--- NOTE | 2019-05-21 04:00 | NUR ---
I have reviewed this patient and I concur with the Shift Assessment completed by the Licensed Practical Nurse today this shift.
--- NOTE | 2019-05-21 04:01 | NUR ---
I have reviewed this patient and I concur with the Shift Assessment completed by the Licensed Practical Nurse today this shift.
[2019-05-21 04:03] LABS: CARBON DIOXIDE 49.9 mmol/L (21.0-32.0)
--- NOTE | 2019-05-21 05:32 | NUR ---
RESPIRATORY CULTURE COLLECTED ORDERED
--- NOTE | 2019-05-21 07:00 | NUR ---
RECEIVED REPORT. ASSUMED CARE OF PATIENT. CALL LIGHT WITHIN REACH. RESTING WITH EYES CLOSED. SLIGHT SNORE NOTED. NO BIPAP ON AT THIS TIME. NO DISTRESS.
--- NOTE | 2019-05-21 07:20 | NUR ---
BATTERIES REPLACED IN TUTORING CLINICIAN.
[2019-05-21 09:28] VITALS: BP 115/75
--- NOTE | 2019-05-21 11:00 | NUR ---
PATIENT SITTING IN BED. AT BEDSIDE. DENIES NEEDS. NO DISTRESS. CALL LIGHT WITHIN REACH.
[2019-05-21 12:20] VITALS: BP 116/72
--- NOTE | 2019-05-21 16:24 | NUR ---
RESTING PEACEFULLY IN BED WITH EYES CLOSED. RESP EVEN AND UNLABORED. NO DISTRESS. CALL LIGHT WIHTIN REACH.
[2019-05-21 17:33] VITALS: BP 119/76
--- NOTE | 2019-05-21 19:10 | NUR ---
RESTING WITH EYES CLOSED LCTA WITH DEMINISHED LOWER AND SLIGHTLY IN UPPER BASSES. BED IS LOW AND LOCKED GARLAND TO GRAVITY SKIN WARM AND DRY RESP EVEN AT [address] AT 4 LITERS
[2019-05-21 20:00] VITALS: BP 130/66
--- NOTE | 2019-05-21 23:31 | NUR ---
SP02 97 FIO2 40 BIPAP APPLIED EXPLAINED IMPORTANCE OF COMPLIANCE PT AGREED ZERO CYANOSIS NO IMMEDIATE S/S RESP DISTRESS
[2019-05-22] VITALS: BP 120/63
--- NOTE | 2019-05-22 01:02 | NUR ---
PT PULLING MASK OFF AND SAYING I CANT BREATH O2 AT 97% I AM ATTEMPTING TO ENCOURAGE HIM TO LEAVE IN PLACE
[2019-05-22 04:00] VITALS: BP 120/62
--- NOTE | 2019-05-22 04:41 | NUR ---
I have reviewed this patient and I concur with the Shift Assessment completed by the Licensed Practical Nurse today this shift.
[2019-05-22 04:49] LABS: BASOPHILS 0.4 % (0-2); EOSINOPHILS 5.9 % (0-7); HEMATOCRIT 28.6 % (42.0-54.0); HEMOGLOBIN 7.7 g/dL (13.5-17.5); IMMATURE GRANULOCYTES 0.1 % (0-5); MCH 21.9 pg (26.0-34.0); MCHC 26.9 g/dL (31.0-37.0); MCV 81.3 fL (80.0-100.0); MEAN PLATELET VOLUME 10.5 fL (7.4-10.4); MONOCYTES 13.5 % (2-11); NEUTROPHILS 59.1 % (40-80); PLATELET COUNT 202 10x3/uL (130-400); RBC 3.52 10x6/uL (4.20-6.10); RDW 17.2 % (11.5-14.5); WBC 7.6 10x3/uL (4.8-10.8)
[2019-05-22 04:53] LABS: ANION GAP 0.7 mmol/L (8-16); CALCIUM 8.7 mg/dL (8.5-10.1); CREATININE - SERUM 1.6 mg/dL (0.6-1.3); POTASSIUM - SERUM 3.7 mmol/L (3.5-5.1)
[2019-05-22 08:44] VITALS: BP 111/57
[2019-05-22 13:50] VITALS: BP 103/58
--- NOTE | 2019-05-22 14:32 | MORECARE ---
CASE MANAGEMENT DISCHARGE SUMMARY PATIENT: SHERRY HOBSON UNIT: [id number] ADM DATE: 05/15/19 AGE: 78 : 40 SEX: M ROOM/BED: D.2102 AUTHOR: YVON,DOC PHYSICIAN: REFERRING PHYSICIAN: CHANTEL BECERRA MD DATE OF SERVICE: 05/22/19 Discharge Plan Patient Name: SHERRY HOBSON Facility: [facility]:[place] : 1940 Planned Disposition: Home Anticipated Discharge Date: 05/19/19 Discharge Date: Expected LOS: 4 Initial Reviewer: [id number] Initial Review Date: 05/15/2019 Generated: 05/22/19 3:31 pm Comments DCP- Discharge Planning Updated by [id number]: Bridget Araujo on 05/20/19 6:[address] LATE ENTRY [address] YOUNG ADVISED THE PATIENT'S WANTS HIM TO GO TO [facility]. THE CAME TO THE DESK. 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 HE STATED TO SEND THE REFERRAL. REPORTEDLY HE IS GOING ON VACATION BUT INSTRUCTED HER TO CALL IF ANY PROBLEMS. ADVISED REFERRAL WILL BE SENT FOR WEDNESDAY. DCP- Discharge Planning Updated by [id number]: Jake Alvarez on 05/19/19 1:[address] Patient Name: SHERRY HOBSON Encounter No: [id number] : 1940 Primary Insurance: [employer] Anticipated DC Date: 05-19-2019 Planned Disposition: Home DCP follow-up note: CM RECEIVED ORDER FOR INPATIENT REHAB, CM SPOKE TO PT IN ROOM REGARDING [facility]PATIENT REHAB AT [facility]. PT REFUSED TO LET CM ATTEMPT TO SEND HIM TO THE [facility] REHAB. PT STATES HE WILL GO HOME AND HIS MAY PAY PRIVATELY FOR OUTPATIENT REHAB AT [facility]. PT AND SPOUSE DENIED DISCHARGE NEEDS AT THIS TIME. PT HAS CM CONTACT NUMBER AND CM INSTRUCTED PT AND SPOUSE TO CALL CM IF THERE IS ANYTHING CM CAN DO FOR THEM. PT PLANS TO DISCHARGE HOME WITH . DR. BECERRA NOTIFIED. Jake Alvarez, CASE MANGEMENT DCP- Discharge Planning Updated by [id number]: Jake Alvarez on 05/16/19 2:[address] Patient Name: SHERRY HOBSON Admission Status: ER Accout number: [id number] Admission Date: 05-15-2019 : 1940 Admission Diagnosis:SHORTNESS OF BREATH Attending: CHANTEL BECERRA Current LOS: 1 Anticipated DC Date: Planned Disposition: VA facility Primary Insurance: [employer] PLANNED EXTERNAL P Discharge Planning Comments: CM MET WITH PT IN ROOM TO DISCUSS DISCHARGE PLANNING AND NEEDS. PT REPORTS LIVING AT HOME INDEPENDENTLY WITH HIS . PT [facility] HOME AND [facility]GEN [facility]. PT HAS NO OUTSIDE SERVICES ASSISTING IN THE HOME. CM DISCUSSED AVAILABILITY OF HOME HEALTH, REHAB SERVICES AND MEDICAL EQUIPMENT. PT DENIES DISCHARGE NEEDS, IS WILLING FOR VA TRANSFER AND DOES NOT KNOW IF THE VA WAS CONTACTED. PT REPORTS BEING SENT TO THE ER FROM THE [facility]. CM CALLED [facility] EXPEDITOR, , SPOKE TO YUNI WHO ADVISED THAT PT IS ALREADY ON THE TRANSFER LIST, CM UPDATED UNIT INFORMATION FOR TRANSFER IF BED BECOMES AVAILABLE. CM TO CONTINUE TO FOLLOW AND ASSIST NEEDED. Assembler Motor Vehicle: Jake Alvarez DCP- Discharge Planning Updated by [id number]: Shayna Snyder on 05/15/19 5:[address] Patient has VA and Medicare A/B CM contacted Veronica WILKES @[phone]. Provided required information for patient and MD. Per ER MD, patient is not stable to transfer at this time. Shayna Snyder RN DCPIA - Discharge Planning Initial Assessment Updated by [id number]: Jake Alvarez on 05/16/19 2:31 pm * Is the patient Alert and Oriented? Yes * How many steps to enter\exit or inside your home? 0-O / 1-I * PCP [facility] [place] * [facility] * Preadmission Environment Home with Family * ADLs Independent * Equipment Cane Oxygen Walker * Other Equipment HOME AND PORTABLE OXYGEN [employer] - MEDICAL EQUIPMENT PROVIDER * List name and contact numbers for known caregivers / representatives who currently or will assist patient after discharge: JUDAH HOBSON, SPOUSE, * Verbal permission to speak to the caregivers and representatives has been obtained from the patient. N/A * Community resources currently utilized None * Please name any agencies selected above. NONE * Additional services required to return to the preadmission environment? No * Can the patient safely return to the preadmission environment? Yes * Has this patient been hospitalized within the prior 30 days at any hospital? No External Providers External Provider: OTHER-OTHER Next Contact Date: 05/22/2019 Service Request Date: Service Type: Resolution: Reviewer: Comments: Last DP export: 05/20/19 6:08 p Patient Name: SHERRY HOBSON Page 29400 at 1432 All edits/amendments must be made on the electronic document DICTATION DATE: 05/22/19 [address] [employer]P: RADHA 05/22/19 1431 RPT#: [id number] DC DATE: STATUS: ADM IN [facility] [address] [place] [address] END OF REPORT
--- NOTE | 2019-05-22 14:46 | MORECARE ---
CASE MANAGEMENT DISCHARGE SUMMARY PATIENT: SHERRY HOBSON UNIT: [id number] ADM DATE: 05/15/19 AGE: 78 : 40 SEX: M ROOM/BED: D.2105 AUTHOR: YVON,DOC PHYSICIAN: REFERRING PHYSICIAN: CHANTEL BECERRA MD DATE OF SERVICE: 05/22/19 Discharge Plan Patient Name: SHERRY HOBSON Facility: [facility]:[place] : 1940 Planned Disposition: Home Anticipated Discharge Date: 05/19/19 Discharge Date: Expected LOS: 4 Initial Reviewer: [id number] Initial Review Date: 05/15/2019 Generated: 05/22/19 3:46 pm Comments DCP- Discharge Planning Updated by [id number]: Jake Alvarez on 05/22/19 1:[address] Patient Name: SHERRY HOBSON Admission Status: ER Accout number: [id number] Admission Date: 05-15-2019 : 1940 Admission Diagnosis:SHORTNESS OF BREATH Attending: CHANTEL BECERRA Current LOS: 7 Anticipated DC Date: 05-19-2019 Planned Disposition: Home Primary Insurance: [facility] ADMINISTRATION Discharge Planning Comments: CM RECEIVED ORDER FOR BIPAP OR TRILOGY IF PT QUALIFIES. CM CALLED [facility] [place], , SPOKE TO NURSE SORIANO WHO ADVISED THAT PT HAS TO PHYSICALLY PRESENT AT THE [facility] [place] FOR EVALUATION TO RECEIVE A BIPAP OR TRILOGY, IT CANNOT OBTAINED OTHERWISE. NURSE SORIANO HAS PT SCHEDULED FOR APPOINTMENT TOMORROW, 05-23-19, TO REVIEW FOR BIPAP. CM NOTIFIED DR. TYLER WHO REPORTS PT CAN DISCHARGE FOR HIS APPOINTMENT AT THE [facility]. CM FAXED CHART NOTES TO [facility] AT [phone]. [address] JAY WHO ADVISED PT IS NOT STABLE TO DISCHARGE WITHOUT BIPAP OR TRILOGY MACHINE FOR [facility] FOLLOW UP. DR. JAY INFORMED CM THAT PT AND SPOUSE WANT PT PLACED AT [facility]. ERICK CALLED AND NOTIFIED BO AT [facility], , WHO WILL SEE IF THERE ARE ANY OTHER OPTIONS TO OBTAIN NEEDED EQUIPMENT. CM WAITING ON [facility] TO CALL AND NOTIFY IF THERE ARE ANY OPTIONS TO RECEIVE BIPAP OR TRILOGY OTHER THAN PT PERSONALLY APPEARING AT [facility]. CM TO FOLLOW UP WITH PT AND SPOUSE REGARDING REHAB PLACEMENT. Financial Advocate: Jake Alvarez DCP- Discharge Planning Updated by [id number]: Bridget Dominguezs on 05/20/19 6:[address] LATE ENTRY [address] DR YOUNG ADVISED THE PATIENT'S WANTS HIM TO GO TO [facility]. THE CAME TO THE DESK. 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 HE STATED TO SEND THE REFERRAL. REPORTEDLY HE IS GOING ON VACATION BUT INSTRUCTED HER TO CALL IF ANY PROBLEMS. ADVISED REFERRAL WILL BE SENT FOR WEDNESDAY. DCP- Discharge Planning Updated by [id number]: Jake Alvarez on 05/19/19 1:[address] Patient Name: SHERRY HOBSON Encounter No: [id number] : 1940 Primary Insurance: [employer] Anticipated DC Date: 05-19-2019 Planned Disposition: Home DCP follow-up note: CM RECEIVED ORDER FOR INPATIENT REHAB, CM SPOKE TO PT IN ROOM REGARDING INPATIENT REHAB AT THE [facility] [place] [facility]. PT REFUSED TO LET CM ATTEMPT TO SEND HIM TO THE [facility] [place] [facility]. PT STATES HE WILL GO HOME AND HIS MAY PAY PRIVATELY FOR OUTPATIENT REHAB AT [facility]. PT AND SPOUSE DENIED DISCHARGE NEEDS AT THIS TIME. PT HAS CM CONTACT NUMBER AND CM INSTRUCTED PT AND SPOUSE TO CALL CM IF THERE IS ANYTHING CM CAN DO FOR THEM. PT PLANS TO DISCHARGE HOME WITH . DR. BECERRA NOTIFIED. Jake Alvarez, BETTIE MANGEMENT DCP- Discharge Planning Updated by [id number]: Jake Alvarez on 05/16/19 2:[address] Patient Name: SHERRY HOBSON Admission Status: ER Accout number: [id number] Admission Date: 05-15-2019 : 1940 Admission Diagnosis:SHORTNESS OF BREATH Attending: CHANTEL BECERRA Current LOS: 1 Anticipated DC Date: Planned Disposition: VA facility Primary Insurance: [employer] PLANNED EXTERNAL P Discharge Planning Comments: CM MET WITH PT IN ROOM TO DISCUSS DISCHARGE PLANNING AND NEEDS. PT REPORTS LIVING AT HOME INDEPENDENTLY WITH HIS . PT HAS HOME AND PORTABLE OXYGEN FROM THE [facility]. PT HAS NO OUTSIDE SERVICES ASSISTING IN THE HOME. CM DISCUSSED AVAILABILITY OF HOME HEALTH, REHAB SERVICES AND MEDICAL EQUIPMENT. PT DENIES DISCHARGE NEEDS, IS WILLING FOR VA TRANSFER AND DOES NOT KNOW IF THE VA WAS CONTACTED. PT REPORTS BEING SENT TO THE [facility] FROM THE [facility] CL[facility]. CM CALLED [facility] EX[facility], , SPOKE TO YUNI WHO ADVISED THAT PT IS ALREADY ON THE TRANSFER LIST, CM UPDATED UNIT INFORMATION FOR TRANSFER IF BED BECOMES AVAILABLE. CM TO CONTINUE TO FOLLOW AND ASSIST NEEDED. Financial Advocate: Jake Alvarez DCP- Discharge Planning Updated by [id number]: Shayna Snyder on 05/15/19 5:[address] Patient has VA and Medicare A/B CM contacted Veronica SERVANDOPREM @[phone]. Provided required information for patient and MD. Per ER MD, patient is not stable to transfer at this time. Shayna Snyder RN DCPIA - Discharge Planning Initial Assessment Updated by [id number]: Jake Alvarez on 05/16/19 2:31 pm * Is the patient Alert and Oriented? Yes * How many steps to enter\exit or inside your home? 0-O / 1-I * [facility] [place] [facility] * Preadmission Environment Home with Family * ADLs Independent * Equipment Cane Oxygen Walker * Other Equipment HOME AND PORTABLE OXYGEN [employer] - MEDICAL EQUIPMENT PROVIDER * List name and contact numbers for known caregivers / representatives who currently or will assist patient after discharge: UJDAH HOBSON, SPOUSE, * Verbal permission to speak to the caregivers and representatives has been obtained from the patient. N/A * Community resources currently utilized None * Please name any agencies selected above. NONE * Additional services required to return to the preadmission environment? No * Can the patient safely return to the preadmission environment? Yes * Has this patient been hospitalized within the prior 30 days at any hospital? No Last DP export: 05/22/19 1:32 p Patient Name: SHERRY HOBSON Page 92244 at 1446 All edits/amendments must be made on the electronic document DICTATION DATE: 05/22/19 1446 TRIMMING CUTTER MACHINE: RADHA 05/22/19 1446 RPT#: [id number] DC DATE: STATUS: ADM IN [facility] [address] [place] [address] END OF REPORT
--- NOTE | 2019-05-22 15:05 | MORECARE ---
CASE MANAGEMENT DISCHARGE SUMMARY PATIENT: SHERRY HOBSON UNIT: [id number] ADM DATE: 05/15/19 AGE: 78 : 40 SEX: M ROOM/BED: D.2105 AUTHOR: YVON,DOC PHYSICIAN: REFERRING PHYSICIAN: CHANTEL BECERRA MD DATE OF SERVICE: 05/22/19 Discharge Plan Patient Name: SHERRY HOBSON Facility: [facility]:[place] : 1940 Planned Disposition: Home Anticipated Discharge Date: 05/19/19 Discharge Date: Expected LOS: 4 Initial Reviewer: [id number] Initial Review Date: 05/15/2019 Generated: 05/22/19 4:05 pm Comments DCP- Discharge Planning Updated by [id number]: Jake Alvarez on 05/22/19 1:[address] Patient Name: SHERRY HOBSON Admission Status: ER Accout number: [id number] Admission Date: 05-15-2019 : 1940 Admission Diagnosis:SHORTNESS OF BREATH Attending: CHANTEL BECERRA Current LOS: 7 Anticipated DC Date: 05-19-2019 Planned Disposition: Home Primary Insurance: [facility] ADMINISTRATION Discharge Planning Comments: CM RECEIVED ORDER FOR BIPAP OR TRILOGY IF PT QUALIFIES. [facility] CALLED [facility] [place], , SPOKE TO NURSE SORIANO WHO ADVISED THAT PT HAS TO PH[facility]ICALLY PRESENT AT THE [facility] [place] FOR EVALUATION TO RECEIVE A BIPAP OR TRILOGY, IT CANNOT OBTAINED OTHERWISE. NURSE SORIANO HAS PT SCHEDULED FOR APPOINTMENT TOMORROW, 05-23-19, TO REVIEW FOR BIPAP. CM NOTIFIED DR. TYLER WHO REPORTS PT CAN DISCHARGE FOR HIS APPOINTMENT AT THE [facility] FROM [facility]UL[facility]. CM FAXED CHART NOTES TO [facility] [place] AT [phone]. CM NOTIFIED DR. JAY WHO ADVISED PT IS NOT STABLE TO DISCHARGE WITHOUT BIPAP OR TRILOGY MACHINE FOR VA FOLLOW UP. DR. JAY INFORMED CM THAT PT AND SPOUSE WANT PT PLACED AT [facility]. ERICK CALLED AND NOTIFIED BO AT [facility] [place], , WHO WILL SEE IF THERE ARE ANY OTHER OPTIONS TO OBTAIN NEEDED EQUIPMENT. CM WAITING ON [facility] TO CALL AND NOTIFY IF THERE ARE ANY OPTIONS TO RECEIVE BIPAP OR TRILOGY OTHER THAN PT PERSONALLY APPEARING AT [facility]. CM TO FOLLOW UP WITH PT AND SPOUSE REGARDING REHAB PLACEMENT. Word Processor Operator: Jake Alvarez DCP- Discharge Planning Updated by [id number]: Bridget Dominguezs on 05/20/19 6:[address] LATE ENTRY 1300 DR YOUNG ADVISED THE PATIENT'S WANTS HIM TO GO TO [facility]. THE CAME TO THE DESK. 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 HE STATED TO SEND THE REFERRAL. REPORTEDLY HE IS GOING ON VACATION BUT INSTRUCTED HER TO CALL IF ANY PROBLEMS. ADVISED REFERRAL WILL BE SENT FOR WEDNESDAY. DCP- Discharge Planning Updated by [id number]: Jake Alvarez on 05/19/19 1:[address] Patient Name: SHERRY HOBSON Encounter No: [id number] : 1940 Primary Insurance: [employer] Anticipated DC Date: 05-19-2019 Planned Disposition: Home DCP follow-up note: CM RECEIVED ORDER FOR INPATIENT REHAB, CM SPOKE TO PT IN ROOM REGARDING [facility] [place] [facility]OUGH THE [facility]. PT REFUSED TO LET CM ATTEMPT TO SEND HIM TO THE [facility] OR [facility] REHAB. PT STATES HE WILL GO HOME AND HIS MAY PAY PRIVATELY FOR OUTPATIENT REHAB AT [facility]. PT AND SPOUSE DENIED DISCHARGE NEEDS AT THIS TIME. PT HAS CM CONTACT NUMBER AND CM INSTRUCTED PT AND SPOUSE TO CALL CM IF THERE IS ANYTHING CM CAN DO FOR THEM. PT PLANS TO DISCHARGE HOME WITH . DR. BECERRA NOTIFIED. Jake Alvarez, BETTIE MANGEMENT DCP- Discharge Planning Updated by [id number]: Jake Alvarez on 05/16/19 2:[address] Patient Name: SHERRY HOBSON Admission Status: ER Accout number: [id number] Admission Date: 05-15-2019 : 1940 Admission Diagnosis:SHORTNESS OF BREATH Attending: CHANTEL BECERRA Current LOS: 1 Anticipated DC Date: Planned Disposition[facility] facility Primary Insurance: [employer] PLANNED EXTERNAL P Discharge Planning Comments: CM MET WITH PT IN ROOM TO DISCUSS DISCHARGE PLANNING AND NEEDS. PT REPORTS LIVING AT HOME INDEPENDENTLY WITH HIS . PT [facility] HOME AND [facility]GEN [facility]. PT HAS NO OUTSIDE SERVICES ASSISTING IN THE HOME. CM DISCUSSED AVAILABILITY OF HOME HEALTH, REHAB SERVICES AND MEDICAL EQUIPMENT. PT DENIES DISCHARGE NEEDS, IS WILLING FOR VA TRANSFER AND DOES NOT KNOW IF THE VA WAS CONTACTED. PT REPORTS BEING SENT TO THE ER FROM THE [facility] CLINIC. CM CALLED [facility] EXP[facility], , SPOKE TO YUNI WHO ADVISED THAT PT IS ALREADY ON THE TRANSFER LIST, CM UPDATED UNIT INFORMATION FOR TRANSFER IF BED BECOMES AVAILABLE. CM TO CONTINUE TO FOLLOW AND ASSIST NEEDED. Word Processor Operator: Jake Alvarez DCP- Discharge Planning Updated by [id number]: Shayna Snyder on 05/15/19 5:[address] Patient has VA and Medicare A/B CM contacted Veronica [facility] @[phone]. Provided required information for patient and MD. Per ER MD, patient is not stable to transfer at this time. Shayna Snyder RN DCPIA - Discharge Planning Initial Assessment Updated by [id number]: Jake Alvarez on 05/16/19 2:31 pm * Is the patient Alert and Oriented? Yes * How many steps to enter\exit or inside your home? 0-O / 1-I * PCP [facility] [place] * [facility]acy [facility] * Preadmission Environment Home with Family * ADLs Independent * Equipment Cane Oxygen Walker * Other Equipment HOME AND PORTABLE OXYGEN [employer] - MEDICAL EQUIPMENT PROVIDER * List name and contact numbers for known caregivers / representatives who currently or will assist patient after discharge: JUDAH HOBSON, SPOUSE, * Verbal permission to speak to the caregivers and representatives has been obtained from the patient. N/A * Community resources currently utilized None * Please name any agencies selected above. NONE * Additional services required to return to the preadmission environment? No * Can the patient safely return to the preadmission environment? Yes * Has this patient been hospitalized within the prior 30 days at any hospital? No External Providers External Provider: [facility] Next Contact Date: 05/22/2019 Service Request Date: Service Type: Resolution: Reviewer: Comments: Last DP export: 05/22/19 1:46 p Patient Name: SHERRY HOBSON Page 70461 at 1505 All edits/amendments must be made on the electronic document DICTATION DATE: 05/22/19 150 MORGUE TECHNICIAN: RADHA 05/22/19 1505 RPT#: [id number] DC DATE: STATUS: ADM IN [facility] [address] [place] [address] END OF REPORT
--- NOTE | 2019-05-22 15:14 | MORECARE ---
CASE MANAGEMENT DISCHARGE SUMMARY PATIENT: SHERRY HOBSON UNIT: [id number] ADM DATE: 05/15/19 AGE: 78 : 40 SEX: M ROOM/BED: D.2105 AUTHOR: YVON,DOC PHYSICIAN: REFERRING PHYSICIAN: CHANTEL BECERRA MD DATE OF SERVICE: 05/22/19 Discharge Plan Patient Name: SHERRY HOBSON Facility: [facility]:[place] : 1940 Planned Disposition: Intermediate Facility Anticipated Discharge Date: 05/22/19 Discharge Date: Expected LOS: 7 Initial Reviewer: [id number] Initial Review Date: 05/15/2019 Generated: 05/22/19 4:13 pm Comments DCP- Discharge Planning Updated by [id number]: Jake Alvarez on 05/22/19 2:[address] Patient Name: SHERRY HOBSON Encounter No: [id number] : 1940 Primary Insurance: [employer] Anticipated DC Date: 05-22-2019 Planned Disposition: Intermediate Facility External Planned Provider: [facility], MEDICARE REHAB BED DCP follow-up note: CM SPOKE TO PT AND SPOUSE IN ROOM, PT AND SPOUSE WOULD LIKE REFERRAL TO [facility]. CM DISCUSSED THAT [facility] DOES NOT HAVE VA CONTRACTED SERVICES. BOTH REPORT UNDERSTANDING. PT'S SPOUSE REPORTS PT HAVING MEDICARE PART A BUT SHE DOES NOT HAVE PT'S CARD WITH HER OR KNOW THE NUMBER. PT'S SPOUSE REPORTS SHE WILL PAY FOR THE REHAB IF NEEDED ON [place] PAY BASIS. CHOICE LETTER SIGNED. Jake Alvarez DCP- Discharge Planning Updated by [id number]: Jake Alvarez on 05/22/19 1:[address] Patient Name: SHERRY HOBSON Admission Status: ER Accout number: [id number] Admission Date: 05-15-2019 : 1940 Admission Diagnosis:SHORTNESS OF BREATH Attending: CHANTEL BECERRA Current LOS: 7 Anticipated DC Date: 05-19-2019 Planned Disposition: Home Primary Insurance: [employer] Discharge Planning Comments: CM RECEIVED ORDER FOR BIPAP OR TRILOGY IF PT QUALIFIES. CM CALLED [facility] [place], , SPOKE TO NURSE BO WHO ADVISED THAT PT HAS TO PHYSICALLY PRESENT AT THE [facility] [place] FOR EVALUATION TO RECEIVE A BIPAP OR TRILOGY, IT CANNOT OBTAINED OTHERWISE. NURSE SORIANO HAS PT SCHEDULED FOR APPOINTMENT TOMORROW, 05-23-19, TO REVIEW FOR BIPAP. CM NOTIFIED DR. TYLER WHO REPORTS PT CAN DISCHARGE FOR [facility]. CM FAXED CHART NOTES TO [facility] AT [phone]. CM NOTIFIED DR. JAY WHO ADVISED PT IS NOT STABLE TO DISCHARGE WITHOUT BIPAP OR TRILOGY MACHINE FOR VA FOLLOW UP. DR. JAY INFORMED CM THAT PT AND SPOUSE WANT PT PLACED AT [facility]. CM CALLED AND NOTIFIED BO AT [facility], , WHO WILL SEE IF THERE ARE ANY OTHER OPTIONS TO OBTAIN NEEDED EQUIPMENT. CM WAITING ON VA TO CALL AND NOTIFY IF THERE ARE ANY OPTIONS TO RECEIVE BIPAP OR TRILOGY OTHER THAN PT PERSONALLY APPEARING AT [facility]. CM TO FOLLOW UP WITH PT AND SPOUSE REGARDING REHAB PLACEMENT. Accounts Receivable Accountant: Jake Alvarez DCP- Discharge Planning Updated by [id number]: Bridgetbraydon Aruajo on 05/20/19 6:[address] LATE ENTRY 1300 DR YOUNG ADVISED THE PATIENT'S WANTS HIM TO GO TO [facility]. THE CAME TO THE DESK. 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 HE STATED TO SEND THE REFERRAL. REPORTEDLY HE IS GOING ON VACATION BUT INSTRUCTED HER TO CALL IF ANY PROBLEMS. ADVISED REFERRAL WILL BE SENT FOR WEDNESDAY. DCP- Discharge Planning Updated by [id number]: Jake Alvarez on 05/19/19 1:[address] Patient Name: SHERRY HOBSON Encounter No: [id number] : 1940 Primary Insurance: [employer] Anticipated DC Date: 05-19-2019 Planned Disposition: Home DCP follow-up note: CM RECEIVED ORDER FOR INPATIENT REHAB, CM SPOKE TO PT IN ROOM REGARDING INPATIENT REHAB AT THE [facility] [place] [facility]OUGH THE [facility]. PT REFUSED TO LET CM ATTEMPT TO SEND HIM TO THE [facility] OR [facility]. PT STATES HE WILL GO HOME AND HIS MAY PAY PRIVATELY FOR OUTPATIENT REHAB AT [facility]. PT AND SPOUSE DENIED DISCHARGE NEEDS AT THIS TIME. PT HAS CM CONTACT NUMBER AND CM INSTRUCTED PT AND SPOUSE TO CALL CM IF THERE IS ANYTHING CM CAN DO FOR THEM. PT PLANS TO DISCHARGE HOME WITH . DR. BECERRA NOTIFIED. Jake Alvarez, BETTIE ROSS DCP- Discharge Planning Updated by [id number]: Jake Alvarez on 05/16/19 2:[address] Patient Name: SHERRY HOBSON Admission Status: ER Accout number: [id number] Admission Date: 05-15-2019 : 1940 Admission Diagnosis:SHORTNESS OF BREATH Attending: CHANTEL BECERRA Current LOS: 1 Anticipated DC Date: Planned Disposition: [facility] facility Primary Insurance: [employer] PLANNED EXTERNAL P Discharge Planning Comments: CM MET WITH PT IN ROOM TO DISCUSS DISCHARGE PLANNING AND NEEDS. PT REPORTS LIVING AT HOME INDEPENDENTLY WITH HIS . PT [facility] HOME AND [facility]GEN FROM [facility]. PT HAS NO OUTSIDE SERVICES ASSISTING IN THE HOME. CM DISCUSSED AVAILABILITY OF HOME HEALTH, REHAB SERVICES AND MEDICAL EQUIPMENT. PT DENIES DISCHARGE NEEDS, IS WILLING FOR VA TRANSFER AND DOES NOT KNOW IF THE VA WAS CONTACTED. PT REPORTS BEING SENT TO THE ER FROM THE [facility]. CM CALLED [facility] EXP[facility]OR, , SPOKE TO YUNI WHO ADVISED THAT PT IS ALREADY ON THE TRANSFER LIST, CM UPDATED UNIT INFORMATION FOR TRANSFER IF BED BECOMES AVAILABLE. CM TO CONTINUE TO FOLLOW AND ASSIST NEEDED. Accounts Receivable Accountant: Jake Alvarez DCP- Discharge Planning Updated by [id number]: Shayna Snyder on 05/15/19 5:[address] Patient has VA and Medicare A/B CM contacted Veronica WILKES @[phone]. Provided required information for patient and MD. Per ER MD, patient is not stable to transfer at this time. Shayna Snyder RN DCPIA - Discharge Planning Initial Assessment Updated by [email or web address]: Jake Alvarez on 05/16/19 2:31 pm * Is the patient Alert and Oriented? Yes * How many steps to enter\exit or inside your home? 0-O / 1-I * PCP [facility] [place] * [facility]acy [facility] * Preadmission Environment Home with Family * ADLs Independent * Equipment Cane Oxygen Walker * Other Equipment HOME AND PORTABLE OXYGEN [employer] - MEDICAL EQUIPMENT PROVIDER * List name and contact numbers for known caregivers / representatives who currently or will assist patient after discharge: JUDAH HOBSON, SPOUSE, * Verbal permission to speak to the caregivers and representatives has been obtained from the patient. N/A * Community resources currently utilized None * Please name any agencies selected above. NONE * Additional services required to return to the preadmission environment? No * Can the patient safely return to the preadmission environment? Yes * Has this patient been hospitalized within the prior 30 days at any hospital? No Last DP export: 05/22/19 2:05 p Patient Name: SHERRY HOSBON Page 91926 at 1514 All edits/amendments must be made on the electronic document DICTATION DATE: 05/22/191512 FOOD PROCESSING SCIENTIST: RADHA 05/22/191512 RPT#: [id number] DC DATE: STATUS: ADM IN [facility] [address] [place] [address] END OF REPORT
--- NOTE | 2019-05-22 15:21 | MORECARE ---
CASE MANAGEMENT DISCHARGE SUMMARY PATIENT: SHERRY HOBSON UNIT: [id number] ADM DATE: 05/15/19 AGE: 78 : 40 SEX: M ROOM/BED: D.2101 AUTHOR: YVON,DOC PHYSICIAN: REFERRING PHYSICIAN: CHANTEL BECERRA MD DATE OF SERVICE: 05/22/19 Discharge Plan Patient Name: SHERRY HOBSON Facility: [facility]:[place] : 1940 Planned Disposition: [facility] Facility Anticipated Discharge Date: 05/22/19 Discharge Date: Expected LOS: 7 Initial Reviewer: [id number] Initial Review Date: 05/15/2019 Generated: 05/22/19 4:21 pm Comments DCP- Discharge Planning Updated by [email or web address]: Jake Alvarez on 05/22/19 2:[address] Patient Name: SHERRY HOBSON Encounter No: [id number] : 1940 Primary Insurance: [employer] Anticipated DC Date: 05-22-2019 Planned Disposition: [facility] Facility External Planned Provider: [facility], MEDICARE REHAB BED DCP follow-up note: ERICK SPOKE TO PT AND SPOUSE IN ROOM, PT AND SPOUSE WOULD LIKE REFERRAL TO [facility]. ERICK DISCUSSED THAT [facility] NOT HAVE [facility] CONTRACTED SERVICES. BOTH REPORT UNDERSTANDING. PT'S SPOUSE REPORTS PT HAVING MEDICARE PART A BUT SHE DOES NOT HAVE PT'S CARD WITH HER OR KNOW THE NUMBER. PT'S SPOUSE REPORTS SHE WILL PAY FOR THE REHAB IF NEEDED ON [place] PAY BASIS. CHOICE LETTER SIGNED. ERICK RECEIVED CALL FROM [facility] [place], , SPOKE TO NURSE SORIANO WHO ADVISED THAT SHE TRIED TO SET UP A BIPAP FOR TODAY AND THAT CANNOT BE DONE. SHE WILL PUT IN A CONSULT AND IT WILL BE 05-26-19, AT THE EARLIEST, IF A BIPAP CAN BE ARRANGED WITH THE VA WITHOUT THE OUTPATIENT APPOINTMENT IN PERSON. BO ADVISED THAT PT MAY USE PRIVATE INSURANCE OR PAY FOR THE EQUIPMENT OR TRANSFER TO [facility]. PT IS ON THE [facility] TRANSFER LIST. CM NOTIFIED PT AND SPOUSE. ERICK CALLEDA AND SPOKE TO [facility] AT [phone] WHO WILL SCREEN FOR ADMISSION AND WILL NEED TO DISCUSS FINANCIALS WITH PT'S SPOUSE THEY ARE NOT CONTRACTED FOR [facility] AND MEDICARE PART A WILL NOT COVER THE COSTS OF REHAB. CM FAXED REFERRAL TO ANDREW AT [facility], . CM WAITING ADMISSION DETERMINATION FROM [facility] AND FINANCIAL ARRANGEMENTS BY FAMILY IF NEEDED FOR REHAB PLACEMENT. [facility] [place] CONTINUES TO WORK ON HOME BIPAP ARRANGEMENTS. Jake Alvarez, CASE MANAGEMENT DCP- Discharge Planning Updated by [id number]: Jake Alvarez on 05/22/19 1:[address] Patient Name: SHERRY HOBSON Admission Status: ER Accout number: [id number] Admission Date: 05-15-2019 : 1940 Admission Diagnosis:SHORTNESS OF BREATH Attending: CHANTEL BECERRA Current LOS: 7 Anticipated DC Date: 05-19-2019 Planned Disposition: Home Primary Insurance: [employer] Discharge Planning Comments: CM RECEIVED ORDER FOR BIPAP OR TRILOGY IF PT QUALIFIES. CM CALLED [facility] [place], , SPOKE TO NURSE SORIANO WHO ADVISED THAT PT HAS TO PHYSICALLY PRESENT AT THE [facility] [place] FOR EVALUATION TO RECEIVE A BIPAP OR TRILOGY, IT CANNOT OBTAINED OTHERWISE. NURSE SORIANO HAS PT SCHEDULED FOR APPOINTMENT TOMORROW, 05-23-19, TO REVIEW FOR BIPAP. CM NOTIFIED DR. TYLER WHO REPORTS PT CAN DISCHARGE FOR HIS APPOINTMENT AT THE [facility]. CM FAXED CHART NOTES TO [facility] AT [phone]. CM NOTIFIED [address] JAY WHO ADVISED PT IS NOT STABLE TO DISCHARGE WITHOUT BIPAP OR TRILOGY MACHINE FOR VA FOLLOW UP. DR. JAY INFORMED CM THAT PT AND SPOUSE WANT PT PLACED AT [facility]. CM CALLED AND NOTIFIED BO AT [facility], , WHO WILL SEE IF THERE ARE ANY OTHER OPTIONS TO OBTAIN NEEDED EQUIPMENT. CM WAITING ON [facility] TO CALL AND NOTIFY IF THERE ARE ANY OPTIONS TO RECEIVE BIPAP OR TRILOGY OTHER THAN PT PERSONALLY APPEARING AT [facility]. CM TO FOLLOW UP WITH PT AND SPOUSE REGARDING REHAB PLACEMENT. Airplane Flight Attendant Supervisor: Jake Alvarez DCP- Discharge Planning Updated by [id number]: Bridget Araujo on 05/20/19 6:[address] LATE ENTRY [address] DR YOUNG ADVISED THE PATIENT'S WANTS HIM TO GO TO [facility]. THE CAME TO THE DESK. 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 HE STATED TO SEND THE REFERRAL. REPORTEDLY HE IS GOING ON VACATION BUT INSTRUCTED HER TO CALL IF ANY PROBLEMS. ADVISED REFERRAL WILL BE SENT FOR WEDNESDAY. DCP- Discharge Planning Updated by [id number]: Jake Alvarez on 05/19/19 1:[address] Patient Name: SHERRY HOBSON Encounter No: [id number] : 1940 Primary Insurance: [employer] Anticipated DC Date: 05-19-2019 Planned Disposition: Home DCP follow-up note: CM RECEIVED ORDER FOR INPATIENT REHAB, CM SPOKE TO PT IN ROOM REGARDING [facility]PATIENT REHAB AT [facility] [place] [facility]. PT REFUSED TO LET CM ATTEMPT TO SEND HIM TO THE [facility] [place] RE[facility]. PT STATES HE WILL GO HOME AND HIS MAY PAY PRIVATELY FOR OUTPATIENT REHAB AT [facility]. PT AND SPOUSE DENIED DISCHARGE NEEDS AT THIS TIME. PT HAS CM CONTACT NUMBER AND CM INSTRUCTED PT AND SPOUSE TO CALL CM IF THERE IS ANYTHING CM CAN DO FOR THEM. PT PLANS TO DISCHARGE HOME WITH . DR. BECERRA NOTIFIED. Jake Alvarez, BETTIE ROSS DCP- Discharge Planning Updated by [id number]: Jake Alvarez on 05/16/19 2:[address] Patient Name: SHERRY HOBSON Admission Status: ER Accout number: [id number] Admission Date: 05-15-2019 : 1940 Admission Diagnosis:SHORTNESS OF BREATH Attending: CHANTEL BECERRA Current LOS: 1 Anticipated DC Date: Planned Disposition: [facility] facility Primary Insurance: [employer] PLANNED EXTERNAL P Discharge Planning Comments: CM MET WITH PT IN ROOM TO DISCUSS DISCHARGE PLANNING AND NEEDS. PT REPORTS LIVING AT HOME INDEPENDENTLY WITH HIS . PT HAS HOME AND PORTABLE OXYGEN FROM THE [facility]. PT HAS NO OUTSIDE SERVICES ASSISTING IN THE HOME. CM DISCUSSED AVAILABILITY OF HOME HEALTH, REHAB SERVICES AND MEDICAL EQUIPMENT. PT DENIES DISCHARGE NEEDS, IS WILLING FOR VA TRANSFER AND DOES NOT KNOW IF THE VA WAS CONTACTED. PT REPORTS BEING S[facility] TO THE [facility] FROM THE [facility]. CM CALLED [facility] EX[facility], , SPOKE TO YUNI WHO ADVISED THAT PT IS ALREADY ON THE TRANSFER LIST, CM UPDATED UNIT INFORMATION FOR TRANSFER IF BED BECOMES AVAILABLE. CM TO CONTINUE TO FOLLOW AND ASSIST NEEDED. Airplane Flight Attendant Supervisor: Jake Alvarez DCP- Discharge Planning Updated by [id number]: Shayna Snyder on 05/15/19 5:[address] Patient has VA and Medicare A/B CM contacted Veronica WILKES @[phone]. Provided required information for patient and MD. Per ER MD, patient is not stable to transfer at this time. Shayna Snyder RN DCPIA - Discharge Planning Initial Assessment Updated by [id number]: Jake Alvarez on 05/16/19 2:31 pm * Is the patient Alert and Oriented? Yes * How many steps to enter\exit or inside your home? 0-O / 1-I * [facility]CP [facility] [place] * [facility] * Preadmission Environment Home with Family * ADLs Independent * Equipment Cane Oxygen Walker * Other Equipment HOME AND PORTABLE OXYGEN [employer] - MEDICAL EQUIPMENT PROVIDER * List name and contact numbers for known caregivers / representatives who currently or will assist patient after discharge: JUDAH HOBSON, SPOUSE, * Verbal permission to speak to the caregivers and representatives has been obtained from the patient. N/A * Community resources currently utilized None * Please name any agencies selected above. NONE * Additional services required to return to the preadmission environment? No * Can the patient safely return to the preadmission environment? Yes * Has this patient been hospitalized within the prior 30 days at any hospital? No Coverage Notice Reviewer: [id number] - Jake Alvarez Notice Issued Date-Time: 05/22/2019 14:55 Notice Type: Patient Choice Letter Notice Delivered To: Family Member Relationship to Patient: Spouse Pbx Teacher Name: JUDAH HOBSON Delivery Method: HAND - Hand Delivered Rika Days: Prior Verbal Notification: Recipient Understood Notice: Yes Recipient Signature: Yes Med Rec Note Co-signed by Attending: Coverage Notice Comment: Last DP export: 05/22/19 2:14 p Patient Name: SHERRY HOBSON Page 60546 at 1521 All edits/amendments must be made on the electronic document DICTATION DATE: 05/22/19 152 HEALTH COMPANION: RADHA 05/22/19 152 RPT#: [id number] [place] DATE: STATUS: ADM IN [facility] [address] [place] [address] END OF REPORT
[2019-05-22 17:54] VITALS: BP 104/64
--- NOTE | 2019-05-22 19:00 | NUR ---
PATIENT LAYING IN BED. PATIENT HAS NO COMPLAINTS AT THIS TIME. NO DISTRESS NOTED.
[2019-05-22 20:00] VITALS: BP 109/59
[2019-05-23 00:10] VITALS: BP 110/59
[2019-05-23 04:00] VITALS: BP 119/66
[2019-05-23 05:18] LABS: BASOPHILS 0.4 % (0-2); EOSINOPHILS 5.9 % (0-7); HEMATOCRIT 34.2 % (42.0-54.0); IMMATURE GRANULOCYTES 0.1 % (0-5); LYMPHOCYTES 22.7 % (15-50); MCH 22.8 pg (26.0-34.0); MCHC 28.4 g/dL (31.0-37.0); MCV 80.3 fL (80.0-100.0); MEAN PLATELET VOLUME 10.4 fL (7.4-10.4); MONOCYTES 13.2 % (2-11); NEUTROPHILS 57.7 % (40-80); PLATELET COUNT 203 10x3/uL (130-400); WBC 7.3 10x3/uL (4.8-10.8)
[2019-05-23 05:28] LABS: HEMOGLOBIN 9.7 g/dL (13.5-17.5); RBC 4.26 10x6/uL (4.20-6.10)
[2019-05-23 05:34] LABS: ANION GAP 5.6 mmol/L (8-16); CREATININE - SERUM 1.9 mg/dL (0.6-1.3); POTASSIUM - SERUM 3.4 mmol/L (3.5-5.1)
[2019-05-23 05:45] LABS: CARBON DIOXIDE 41.8 mmol/L (21.0-32.0)
--- NOTE | 2019-05-23 09:13 | NUR ---
ALERT AND ORIENTED. NO C/O PAIN. RESP EVEN AND UNLABORED. CL IN REACH.
--- NOTE | 2019-05-23 09:20 | MORECARE ---
CASE MANAGEMENT DISCHARGE SUMMARY PATIENT: SHERRY HOBSON UNIT: [id number] ADM DATE: 05/15/19 AGE: 78 : 40 SEX: M ROOM/BED: D.2109 AUTHOR: YVON,DOC PHYSICIAN: REFERRING PHYSICIAN: CHANTEL BECERRA MD DATE OF SERVICE: 05/23/19 Discharge Plan Patient Name: SHERRY HOBSON Facility: [facility]:[place] : 1940 Planned Disposition: Custodial Facility Anticipated Discharge Date: 05/23/19 Discharge Date: Expected LOS: 8 Initial Reviewer: [id number] Initial Review Date: 05/15/2019 Generated: 05/23/19 10:20 am Comments DCP- Discharge Planning Updated by [id number]: Jake Alvarez on 05/22/19 2:[address] Patient Name: SHERRY HOBSON Encounter No: [id number] : 1940 Primary Insurance: [employer] Anticipated DC Date: 05-22-2019 Planned Disposition: Custodial Facility External Planned Provider: [facility], MEDICARE REHAB BED DCP follow-up note: ERICK SPOKE TO PT AND SPOUSE IN ROOM, PT AND SPOUSE WOULD LIKE REFERRAL TO [facility]. ERICK DISCUSSED THAT [facility] DOES NOT HAVE [place] CONTRACTED SERVICES. BOTH REPORT UNDERSTANDING. PT'S SPOUSE REPORTS PT HAVING MEDICARE PART A BUT SHE DOES NOT HAVE PT'S CARD WITH HER OR KNOW THE NUMBER. PT'S SPOUSE REPORTS SHE WILL PAY FOR THE REHAB IF NEEDED ON [place]O PAY BASIS. CHOICE LETTER SIGNED. ERICK RECEIVED CALL FROM [facility] IN [place], , SPOKE TO NURSE SORIANO WHO ADVISED THAT SHE TRIED TO SET UP A BIPAP FOR TODAY AND THAT CANNOT BE DONE. SHE WILL PUT IN A CONSULT AND IT WILL BE 05-26-19, AT THE EARLIEST, IF A BIPAP CAN BE ARRANGED WITH THE VA WITHOUT THE OUTPATIENT APPOINTMENT IN PERSON. OB ADVISED THAT PT MAY USE PRIVATE INSURANCE OR PAY FOR THE EQUIPMENT OR TRANSFER TO [facility]. PT IS ON THE [facility] TRANSFER LIST. CM NOTIFIED PT AND SPOUSE. ERICK CALLEDA AND SPOKE TO [facility] AT [phone] WHO WILL SCREEN FOR ADMISSION AND WILL NEED TO DISCUSS FINANCIALS WITH PT'S SPOUSE THEY ARE NOT CONTRACTED FOR [place] AND MEDICARE PART A WILL NOT COVER THE COSTS OF REHAB. CM FAXED REFERRAL TO ANDREW AT [facility], . CM WAITING ADMISSION DETERMINATION FROM [facility] AND FINANCIAL ARRANGEMENTS BY FAMILY IF NEEDED FOR REHAB PLACEMENT. [facility] [place] CONTINUES TO WORK ON HOME BIPAP ARRANGEMENTS. Jake Alvarez, CASE MANAGEMENT DCP- Discharge Planning Updated by [id number]: Jake Alvarez on 05/22/19 1:[address] Patient Name: SHERRY HOBSON Admission Status: ER Accout number: [id number] Admission Date: 05-15-2019 : 1940 Admission Diagnosis:SHORTNESS OF BREATH Attending: CHANTEL BECERRA Current LOS: 7 Anticipated DC Date: 05-19-2019 Planned Disposition: Home Primary Insurance: [employer] Discharge Planning Comments: CM RECEIVED ORDER FOR BIPAP OR TRILOGY IF PT QUALIFIES. CM CALLED [facility] IN [place], , SPOKE TO NURSE SORIANO WHO ADVISED THAT PT HAS TO PHYSICALLY PRESENT AT THE [facility] [place] FOR EVALUATION TO RECEIVE A BIPAP OR TRILOGY, IT CANNOT OBTAINED OTHERWISE. NURSE SORIANO HAS PT SCHEDULED FOR APPOINTMENT TOMORROW, 05-23-19, TO REVIEW FOR BIPAP. CM NOTIFIED DR. TYLER WHO REPORTS PT CAN DISCHARGE FOR HIS APPOINTMENT AT THE [facility] FROM [facility]. CM FAXED CHART NOTES TO [facility] AT [phone]. CM NOTIFIED DR. JAY WHO ADVISED PT IS NOT STABLE TO DISCHARGE WITHOUT BIPAP OR TRILOGY MACHINE FOR VA FOLLOW UP. DR. JAY INFORMED CM THAT PT AND SPOUSE WANT PT PLACED AT [facility]. CM CALLED AND NOTIFIED BO AT [facility], , WHO WILL SEE IF THERE ARE ANY OTHER OPTIONS TO OBTAIN NEEDED EQUIPMENT. CM WAITING ON [facility] TO CALL AND NOTIFY IF THERE ARE ANY OPTIONS TO RECEIVE BIPAP OR TRILOGY OTHER THAN PT PERSONALLY APPEARING AT [facility]. CM TO FOLLOW UP WITH PT AND SPOUSE REGARDING REHAB PLACEMENT. Remediation Project Engineer: Jake Alvarez DCP- Discharge Planning Updated by [id number]: Bridget Araujo on 05/20/19 6:[address] LATE ENTRY 1300 DR YOUNG ADVISED THE PATIENT'S WANTS HIM TO GO TO [facility]. THE CAME TO THE DESK. 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 HE STATED TO SEND THE REFERRAL. REPORTEDLY HE IS GOING ON VACATION BUT INSTRUCTED HER TO CALL IF ANY PROBLEMS. ADVISED REFERRAL WILL BE SENT FOR WEDNESDAY. DCP- Discharge Planning Updated by [id number]: Jake Alvarez on 05/19/19 1:[address] Patient Name: SHERRY HOBSON Encounter No: [id number] : 1940 Primary Insurance: [employer] Anticipated DC Date: 05-19-2019 Planned Disposition: Home DCP follow-up note: CM RECEIVED ORDER FOR INPATIENT REHAB, CM SPOKE TO PT IN ROOM REGARDING INPATIENT REHAB AT THE [facility]OUGH THE [facility]. PT REFUSED TO LET CM ATTEMPT TO SEND HIM TO THE [facility] INPATIENT OR [facility]ARE HOME REHAB. PT STATES HE WILL GO HOME AND HIS MAY PAY PRIVATELY FOR OUTPATIENT REHAB AT [facility]. PT AND SPOUSE DENIED DISCHARGE NEEDS AT THIS TIME. PT HAS CM CONTACT NUMBER AND CM INSTRUCTED PT AND SPOUSE TO CALL CM IF THERE IS ANYTHING CM CAN DO FOR THEM. PT PLANS TO DISCHARGE HOME WITH . DR. BECERRA NOTIFIED. Jake Alvarez, BETTIE ROSS DCP- Discharge Planning Updated by [id number]: Jake Alvarez on 05/16/19 2:[address] Patient Name: SHERRY HOBSON Admission Status: ER Accout number: [id number] Admission Date: 05-15-2019 : 1940 Admission Diagnosis:SHORTNESS OF BREATH Attending: CHANTEL BECERRA Current LOS: 1 Anticipated DC Date: Planned Disposition: [place] facility Primary Insurance: [employer] PLANNED EXTERNAL P Discharge Planning Comments: CM MET WITH PT IN ROOM TO DISCUSS DISCHARGE PLANNING AND NEEDS. PT REPORTS LIVING AT HOME INDEPENDENTLY WITH HIS . PT [facility] AND [facility]. PT HAS NO OUTSIDE SERVICES ASSISTING IN THE HOME. CM DISCUSSED AVAILABILITY OF HOME HEALTH, REHAB SERVICES AND MEDICAL EQUIPMENT. PT DENIES DISCHARGE NEEDS, IS WILLING FOR VA TRANSFER AND DOES NOT KNOW IF THE VA WAS CONTACTED. PT REPORTS BEING SENT TO THE ER FROM THE [facility]. CM CALLED [facility], , SPOKE TO YUNI WHO ADVISED THAT PT IS ALREADY ON THE TRANSFER LIST, CM UPDATED UNIT INFORMATION FOR TRANSFER IF BED BECOMES AVAILABLE. CM TO CONTINUE TO FOLLOW AND ASSIST NEEDED. Remediation Project Engineer: Jake Alvarez DCP- Discharge Planning Updated by [id number]: Shayna Snyder on 05/15/19 5:[address] Patient has VA and Medicare A/B CM contacted Veronica WILKES @[phone]. Provided required information for patient and MD. Per ER MD, patient is not stable to transfer at this time. Shayna Snyder RN DCPIA - Discharge Planning Initial Assessment Updated by [id number]: Jake Alvarez on 05/16/19 2:31 pm * Is the patient Alert and Oriented? Yes * How many steps to enter\exit or inside your home? 0-O / 1-I * PCP [facility] [place] * Pharmacy [facility] * Preadmission Environment Home with Family * ADLs Independent * Equipment Cane Oxygen Walker * Other Equipment HOME AND PORTABLE OXYGEN [employer] - MEDICAL EQUIPMENT PROVIDER * List name and contact numbers for known caregivers / representatives who currently or will assist patient after discharge: JUDAH HOBSON, SPOUSE, * Verbal permission to speak to the caregivers and representatives has been obtained from the patient. N/A * Community resources currently utilized None * Please name any agencies selected above. NONE * Additional services required to return to the preadmission environment? No * Can the patient safely return to the preadmission environment? Yes * Has this patient been hospitalized within the prior 30 days at any hospital? No Coverage Notice Reviewer: [id number] - Jake Alvarez Notice Issued Date-Time: 05/22/2019 14:55 Notice Type: Patient Choice Letter Notice Delivered To: Family Member Relationship to Patient: Spouse Gymnasium Teacher Name: JUDAH HOBSON Delivery Method: HAND - Hand Delivered Rika Days: Prior Verbal Notification: Recipient Understood Notice: Yes Recipient Signature: Yes Med Rec Note Co-signed by Attending: Coverage Notice Comment: Last DP export: 05/22/19 2:21 p Patient Name: SHERRY HOBSON Page 67045 at 0920 All edits/amendments must be made on the electronic document DICTATION DATE: 05/23/19919 SPANNER OPERATOR: RADHA 05/23/19919 RPT#: [id number] DC DATE: STATUS: ADM IN [facility] [address] [place] [address] END OF REPORT
--- NOTE | 2019-05-23 09:33 | MORECARE ---
CASE MANAGEMENT DISCHARGE SUMMARY PATIENT: SHERRY HOBSON UNIT: [id number] ADM DATE: 05/15/19 AGE: 78 : 40 SEX: M ROOM/BED: D.2107 AUTHOR: YVON,DOC PHYSICIAN: REFERRING PHYSICIAN: CHANTEL BECERRA MD DATE OF SERVICE: 05/23/19 Discharge Plan Patient Name: SHERRY HOBSON Facility: [facility]:[place] : 1940 Planned Disposition: Correction Facility Anticipated Discharge Date: 05/23/19 Discharge Date: Expected LOS: 8 Initial Reviewer: [id number] Initial Review Date: 05/15/2019 Generated: 05/23/19 10:33 am Comments DCP- Discharge Planning Updated by [id number]: Jake Alvarez on 05/23/19 8:[address] Patient Name: SHERRY HOBSON Encounter No: [id number] : 1940 Primary Insurance: [employer] Anticipated DC Date: 05-23-2019 Planned Disposition: Correction Facility External Planned Provider: [facility], MEDICARE REHAB BED DCP follow-up note: CM RECEIVED CALL FROM PT'S SPOUSE WHO PROVIDED MEDICARE NUMBER FOR PT: [id number], SHE WANTS TO USE MEDICARE FOR REHAB SERVICES. CM RECEIVED CALL FROM ANDREW OF [facility], THEY WILL ACCEPT TODAY AND WILL ARRANGE TRANSPORTATION. ANDREW HAS TALKED TO PT'S SPOUSE NUMEROUS TIMES AND SHE IS IN AGREEMENT WITH REHAB AND UNDERSTANDS HER [place] AMOUNTS. CM PROVIDED MEDICARE NUMBER TO ANDREW. ANDREW INFORMED CM THAT THEY CAN PROVIDE BIPAP AND PT WILL NEED TO BRING CURRENT MASK WITH HIM. CM FAXED BIPAP MASK SIZE AND SETTINGS TO [facility] AT [phone]. [facility] DOES NOT ACCEPT ADMITS ON WEEKENDS OR AFTER 2PM ON WEEKDAYS. CM PAGED SATINDER KUMAR TO NOTIFY OF ARRANGEMENTS. CM NOTIFIED BEDSIDE NURSE. FOR DISCHARGE TO NURSING HOME REHAB, FAX DISCHARGE INFORMATION TO [facility] AT [phone]; NURSE REPORT TO BE CALLED TO [facility] AT [phone]. [facility] TO ARRANGE TRANSPORTATION. BETTIE Durant MANAGEMENT DCP- Discharge Planning Updated by [id number]: Jake Alvarez on 05/22/19 2:[address] Patient Name: SHERRY HOBSON Encounter No: [id number] : 1940 Primary Insurance: [employer] Anticipated DC Date: 05-22-2019 Planned Disposition: Correction Facility External Planned Provider: [facility], MEDICARE REHAB BED DCP follow-up note: CM SPOKE TO PT AND SPOUSE IN ROOM, PT AND SPOUSE WOULD LIKE REFERRAL TO [facility]. CM DISCUSSED THAT [facility] DOES NOT HAVE [place] CONTRACTED SERVICES. BOTH REPORT UNDERSTANDING. PT'S SPOUSE REPORTS PT HAVING MEDICARE PART A BUT SHE DOES NOT HAVE PT'S CARD WITH HER OR KNOW THE NUMBER. PT'S SPOUSE REPORTS SHE WILL PAY FOR THE REHAB IF NEEDED ON [place]ZANO PAY BASIS. CHOICE LETTER SIGNED. CM RECEIVED CALL FROM [facility] IN [place], , SPOKE TO NURSE BO WHO ADVISED THAT SHE TRIED TO SET UP A BIPAP FOR TODAY AND THAT CANNOT BE DONE. SHE WILL PUT IN A CONSULT AND IT WILL BE 05-26-19, AT THE EARLIEST, IF A BIPAP CAN BE ARRANGED WITH THE VA WITHOUT THE OUTPATIENT APPOINTMENT IN PERSON. BO ADVISED THAT PT MAY USE PRIVATE INSURANCE OR PAY FOR THE EQUIPMENT OR TRANSFER TO [facility]. PT IS ON THE [facility] TRANSFER LIST. CM NOTIFIED PT AND SPOUSE. ERICK CALLEDA AND SPOKE TO ANDREW OF [facility] AT [phone] WHO WILL SCREEN FOR ADMISSION AND WILL NEED TO DISCUSS FINANCIALS WITH PT'S SPOUSE THEY ARE NOT CONTRACTED FOR [facility] AND MEDICARE PART A WILL NOT COVER THE COSTS OF REHAB. ERICK FAXED REFERRAL TO ANDREW AT [facility], . ERICK WAITING ADMISSION DETERMINATION FROM [facility] AND FINANCIAL ARRANGEMENTS BY FAMILY IF NEEDED FOR REHAB PLACEMENT. [facility] [place] CONTINUES TO WORK ON HOME BIPAP ARRANGEMENTS. BETTIE Durant DCP- Discharge Planning Updated by [id number]: Jaek Alvarez on 05/22/19 1:[address] Patient Name: SHERRY HOBSON Admission Status: ER Accout number: [id number] Admission Date: 05-15-2019 : 1940 Admission Diagnosis:SHORTNESS OF BREATH Attending: CHANTEL BECERRA Current LOS: 7 Anticipated DC Date: 05-19-2019 Planned Disposition: Home Primary Insurance: [facility] Discharge Planning Comments: CM RECEIVED ORDER FOR BIPAP OR TRILOGY IF PT QUALIFIES. CM CALLED [facility] IN [place], , SPOKE TO NURSE BO WHO ADVISED THAT PT HAS TO PHYSICALLY PRESENT AT THE [facility] [place] FOR EVALUATION TO RECEIVE A BIPAP OR TRILOGY, IT CANNOT OBTAINED OTHERWISE. NURSE SORIANO HAS PT SCHEDULED FOR APPOINTMENT TOMORROW, 05-23-19, TO REVIEW FOR BIPAP. CM NOTIFIED DR. TYLER WHO REPORTS PT CAN DISCHARGE FOR HIS APPOINTMENT AT THE [facility] FROM [facility]UL[facility]ARY. CM FAXED CHART NOTES TO [facility] AT [phone]. CM NOTIFIED DR. JAY WHO ADVISED PT IS NOT STABLE TO DISCHARGE WITHOUT BIPAP OR TRILOGY MACHINE FOR VA FOLLOW UP. DR. JAY INFORMED CM THAT PT AND SPOUSE WANT PT PLACED AT [facility]. CM CALLED AND NOTIFIED BO AT [facility], , WHO WILL SEE IF THERE ARE ANY OTHER OPTIONS TO OBTAIN NEEDED EQUIPMENT. CM WAITING ON [facility] TO CALL AND NOTIFY IF THERE ARE ANY OPTIONS TO RECEIVE BIPAP OR TRILOGY OTHER THAN PT PERSONALLY APPEARING AT [facility]. CM TO FOLLOW UP WITH PT AND SPOUSE REGARDING REHAB PLACEMENT. Cnc Lathe Machine Operator: Jake Alvarez DCP- Discharge Planning Updated by [id number]: Bridget Araujo on 05/20/19 6:[address] LATE ENTRY 1300 DR YOUNG ADVISED THE PATIENT'S WANTS HIM TO GO TO [facility]. THE CAME TO THE DESK. 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 HE STATED TO SEND THE REFERRAL. REPORTEDLY HE IS GOING ON VACATION BUT INSTRUCTED HER TO CALL IF ANY PROBLEMS. ADVISED REFERRAL WILL BE SENT FOR WEDNESDAY. DCP- Discharge Planning Updated by [id number]: Jake Alvarez on 05/19/19 1:[address] Patient Name: SHERRY HOBSON Encounter No: [id number] : 1940 Primary Insurance: [employer] Anticipated DC Date: 05-19-2019 Planned Disposition: Home DCP follow-up note: CM RECEIVED ORDER FOR INPATIENT REHAB, CM SPOKE TO PT IN ROOM REGARDING INPATIENT REHAB AT THE [facility] [place] AND [facility]. PT REFUSED TO LET CM ATTEMPT TO SEND HIM TO THE [facility] INPAT[facility] OR [facility]URSING HOME REHAB. PT STATES HE WILL GO HOME AND HIS MAY PAY PRIVATELY FOR OUTPATIENT REHAB AT [facility]. PT AND SPOUSE DENIED DISCHARGE NEEDS AT THIS TIME. PT HAS CM CONTACT NUMBER AND CM INSTRUCTED PT AND SPOUSE TO CALL CM IF THERE IS ANYTHING CM CAN DO FOR THEM. PT PLANS TO DISCHARGE HOME WITH . DR. BECERRA NOTIFIED. BETTIE Durant DCP- Discharge Planning Updated by [id number]: Jake Alvarez on 05/16/19 2:[address] Patient Name: SHERRY HOBSON Admission Status: ER Accout number: [id number] Admission Date: 05-15-2019 : 1940 Admission Diagnosis:SHORTNESS OF BREATH Attending: CHANTEL BECERRA Current LOS: 1 Anticipated DC Date: Planned Disposition: [place] facility Primary Insurance: [employer] [facility] PLANNED EXTERNAL P Discharge Planning Comments: CM MET WITH PT IN ROOM TO DISCUSS DISCHARGE PLANNING AND NEEDS. PT REPORTS LIVING AT HOME INDEPENDENTLY WITH HIS . PT HAS HOME AND PORTABLE O[facility]GEN FROM THE [facility]. PT HAS NO OUTSIDE SERVICES ASSISTING IN THE HOME. CM DISCUSSED AVAILABILITY OF HOME HEALTH, REHAB SERVICES AND MEDICAL EQUIPMENT. PT DENIES DISCHARGE NEEDS, IS WILLING FOR VA TRANSFER AND DOES NOT KNOW IF THE VA WAS CONTACTED. PT REPORTS BEING SENT TO THE ER FROM THE [facility]. CM CALLED [facility], , SPOKE TO YUNI WHO ADVISED THAT PT IS ALREADY ON THE TRANSFER LIST, CM UPDATED UNIT INFORMATION FOR TRANSFER IF BED BECOMES AVAILABLE. CM TO CONTINUE TO FOLLOW AND ASSIST NEEDED. Cnc Lathe Machine Operator: Jake Alvarez DCP- Discharge Planning Updated by [id number]: Shayna Snyder on 05/15/19 5:[address] Patient has VA and Medicare A/B CM contacted Veronica WILKES @[phone]. Provided required information for patient and MD. Per ER MD, patient is not stable to transfer at this time. Shayna Snyder RN DCPIA - Discharge Planning Initial Assessment Updated by [id number]: Jake Alvarez on 05/16/19 2:31 pm * Is the patient Alert and Oriented? Yes * How many steps to enter\exit or inside your home? 0-O / 1-I * PCP [facility] [place] * [facility]acy [facility] * Preadmission Environment Home with Family * ADLs Independent * Equipment Cane Oxygen Walker * Other Equipment HOME AND PORTABLE OXYGEN [employer] - MEDICAL EQUIPMENT PROVIDER * List name and contact numbers for known caregivers / representatives who currently or will assist patient after discharge: JUDAH HOBSON, SPOUSE, * Verbal permission to speak to the caregivers and representatives has been obtained from the patient. N/A * Community resources currently utilized None * Please name any agencies selected above. NONE * Additional services required to return to the preadmission environment? No * Can the patient safely return to the preadmission environment? Yes * Has this patient been hospitalized within the prior 30 days at any hospital? No Coverage Notice Reviewer: [id number] - Jake Alvarez Notice Issued Date-Time: 05/22/2019 14:55 Notice Type: Patient Choice Letter Notice Delivered To: Family Member Relationship to Patient: Spouse Blue Print Control Clerk Name: JUDAH HOBSON Delivery Method: HAND - Hand Delivered Rika Days: Prior Verbal Notification: Recipient Understood Notice: Yes Recipient Signature: Yes Med Rec Note Co-signed by Attending: Coverage Notice Comment: Last DP export: 05/23/19 8:20 a Patient Name: SHERRY HOBSON Page [id number] at 0933 All edits/amendments must be made on the electronic document DICTATION DATE: 05/23/19931 CUTTING PRESSMAN: RADHA 05/23/19931 RPT#: [id number] DC DATE: STATUS: ADM IN [facility] [address] [place] [address] END OF REPORT
[2019-05-23] MEDS ORDERED: K-DUR20 MEQ PO (11:09)
[2019-05-23] MEDS ORDERED: FUROSEMIDE20 MG PO (11:09)
[2019-05-23] MEDS ORDERED: Xopenex 0.63 MG INH INH (11:10)
--- NOTE | 2019-05-23 12:23 | MORECARE ---
CASE MANAGEMENT DISCHARGE SUMMARY PATIENT: SHERRY HOBSON UNIT: [id number] ADM DATE: 05/15/19 AGE: 78 : 40 SEX: M ROOM/BED: D.2100 AUTHOR: YVON,DOC PHYSICIAN: REFERRING PHYSICIAN: CHANTEL BECERRA MD DATE OF SERVICE: 05/23/19 Discharge Plan Patient Name: SHERRY HOBSON Facility[facility] : 1940 Planned Disposition: Retirement Facility Anticipated Discharge Date: 05/23/19 Discharge Date: Expected LOS: 8 Initial Reviewer: [id number] Initial Review Date: 05/15/2019 Generated: 05/23/19 1:22 pm Comments DCP- Discharge Planning Updated by [id number]: Jake Alvarez on 05/23/19 11:[address] Patient Name: SEHRRY HOBSON Encounter No: [id number] : 1940 Primary Insurance: [employer] Anticipated DC Date: 05-23-2019 Planned Disposition: Retirement Facility External Planned Provider: [facility], MEDICARE REHAB BED DCP follow-up note: CM CALLED AND LEFT DETAILED MESSAGE FOR BO OF [facility], THAT PT IS DISCHARGING TO [facility] FOR REHAB AND WILL NEED BIPAP TO DISCHARGE HOME. CM FAXED DISCHARGE INFORMATION TO [facility]. CM FAXED DISCHARGE INFORMATION TO [facility] AT [phone]. CM CALLED ANDREW AT [facility] AND VERIFIED THEY CAN PROVIDE BIPAP TREATMENT. NURSE REPORT TO BE CALLED TO [facility] AT [phone]. [facility] TO ARRANGE TRANSPORTATION. BETTIE Durant DCP- Discharge Planning Updated by [id number]: Jake Alvarez on 05/23/19 8:[address] Patient Name: SHERRY HOBSON Encounter No: [id number] : 1940 Primary Insurance: [employer] Anticipated DC Date: 05-23-2019 Planned Disposition: Retirement Facility External Planned Provider: [facility], MEDICARE REHAB BED DCP follow-up note: CM RECEIVED CALL FROM PT'S SPOUSE WHO PROVIDED MEDICARE NUMBER FOR PT: [id number], SHE WANTS TO USE MEDICARE FOR REHAB SERVICES. CM RECEIVED CALL FROM ANDREW OF [facility], THEY WILL ACCEPT TODAY AND WILL ARRANGE TRANSPORTATION. ANDREW HAS TALKED TO PT'S SPOUSE NUMEROUS TIMES AND SHE IS IN AGREEMENT WITH REHAB AND UNDERSTANDS HER COPAY AMOUNTS. CM PROVIDED MEDICARE NUMBER TO ANDREW. ANDREW INFORMED CM THAT THEY CAN PROVIDE BIPAP AND PT WILL NEED TO BRING CURRENT MASK WITH HIM. CM FAXED BIPAP MASK SIZE AND SETTINGS TO [facility] AT [phone]. [facility] DOES NOT ACCEPT ADMITS ON WEEKENDS OR AFTER 2PM ON WEEKDAYS. CM PAGED SATINDER KUMAR TO NOTIFY OF ARRANGEMENTS. CM NOTIFIED BEDSIDE NURSE. FOR DISCHARGE TO LONG TERM REHAB, FAX DISCHARGE INFORMATION TO [facility] AT [phone]; NURSE REPORT TO BE CALLED TO [facility] AT [phone]. [facility] TO ARRANGE TRANSPORTATION. Jake Alvarez, CASE MANAGEMENT DCP- Discharge Planning Updated by [id number]: Jake Alvarez on 05/22/19 2:[address] Patient Name: SHERRY HOBSON Encounter No: [id number] : 1940 Primary Insurance: [employer] Anticipated DC Date: 05-22-2019 Planned Disposition: Retirement Facility External Planned Provider: [facility], MEDICARE REHAB BED DCP follow-up note: CM SPOKE TO PT AND SPOUSE IN ROOM, PT AND SPOUSE WOULD LIKE REFERRAL TO [facility]. CM DISCUSSED THAT [facility] DOES NOT HAVE [facility] CONTRACTED SERVICES. BOTH REPORT UNDERSTANDING. PT'S SPOUSE REPORTS PT HAVING MEDICARE PART A BUT SHE DOES NOT HAVE PT'S CARD WITH HER OR KNOW THE NUMBER. PT'S SPOUSE REPORTS SHE WILL PAY FOR THE REHAB IF NEEDED ON [place] PAY BASIS. CHOICE LETTER SIGNED. CM RECEIVED CALL FROM [facility] [place], , SPOKE TO NURSE SORIANO WHO ADVISED THAT SHE TRIED TO SET UP A BIPAP FOR TODAY AND THAT CANNOT BE DONE. SHE WILL PUT IN A CONSULT AND IT WILL BE 05-26-19, AT THE EARLIEST, IF A BIPAP CAN BE ARRANGED WITH THE [facility] WITHOUT THE OUTPATIENT APPOINTMENT IN PERSON. BO ADVISED THAT PT MAY USE PRIVATE INSURANCE OR PAY FOR THE EQUIPMENT OR TRANSFER TO [facility]. PT IS ON THE [facility]ER LIST. CM NOTIFIED PT AND SPOUSE. ERICK CALLEDA AND SPOKE TO ANDREW OF [facility] AT [phone] WHO WILL SCREEN FOR ADMISSION AND WILL NEED TO DISCUSS FINANCIALS WITH PT'S SPOUSE THEY ARE NOT CONTRACTED FOR [facility] AND MEDICARE PART A WILL NOT COVER THE COSTS OF REHAB. CM FAXED REFERRAL TO ANDREW AT [facility], . CM WAITING ADMISSION DETERMINATION FROM [facility] AND FINANCIAL ARRANGEMENTS BY FAMILY IF NEEDED FOR REHAB PLACEMENT. [facility] [place] CONTINUES TO WORK ON HOME BIPAP ARRANGEMENTS. Jake Alvarez, CASE MANAGEMENT DCP- Discharge Planning Updated by [id number]: Jake Alvarez on 05/22/19 1:[address] Patient Name: SHERRY HOBSON Admission Status: ER Accout number: [id number] Admission Date: 05-15-2019 : 1940 Admission Diagnosis:SHORTNESS OF BREATH Attending: CHANTEL BECERRA Current LOS: 7 Anticipated DC Date: 05-19-2019 Planned Disposition: Home Primary Insurance: [employer] Discharge Planning Comments: CM RECEIVED ORDER FOR BIPAP OR TRILOGY IF PT QUALIFIES. ERICK CALLED [facility] [place], , SPOKE TO NURSE SORIANO WHO ADVISED THAT PT HAS TO [facility]ALLY PRESENT AT THE [facility] [place] FOR EVALUATION TO RECEIVE A BIPAP OR TRILOGY, IT CANNOT OBTAINED OTHERWISE. NURSE SORIANO HAS PT SCHEDULED FOR APPOINTMENT TOMORROW, 05-23-19, TO REVIEW FOR BIPAP. ERICK NOTIFIED DR. TYLER WHO REPORTS PT CAN DISCHARGE FOR HIS APPOINTMENT AT THE [facility] FROM [facility]. ERICK FAXED CHART NOTES TO [facility] AT [phone]. ERICK NOTIFIED DR. JAY WHO ADVISED PT IS NOT STABLE TO DISCHARGE WITHOUT BIPAP OR TRILOGY MACHINE FOR [facility] FOLLOW UP. DR. JAY INFORMED CM THAT PT AND SPOUSE WANT PT PLACED AT [facility]. ERICK CALLED AND NOTIFIED BO AT [facility], , WHO WILL SEE IF THERE ARE ANY OTHER OPTIONS TO OBTAIN NEEDED EQUIPMENT. CM WAITING ON [facility] TO CALL AND NOTIFY IF THERE ARE ANY OPTIONS TO RECEIVE BIPAP OR TRILOGY OTHER THAN PT PERSONALLY APPEARING AT [facility]. CM TO FOLLOW UP WITH PT AND SPOUSE REGARDING REHAB PLACEMENT. Monitoring Analyst: Jake Alvarez DCP- Discharge Planning Updated by [id number]: Bridget Araujo on 05/20/19 6:[address] LATE ENTRY 1300 DR YOUNG ADVISED THE PATIENT'S WANTS HIM TO GO TO [facility]. THE CAME TO THE DESK. SHE STATES SHE HAS SPOKEN WITH THE [employer] ASSISTANT AND HAS HIS [employer] CELL PHONE NUMBER. HE STATED TO SEND THE REFERRAL. REPORTEDLY HE IS GOING ON VACATION BUT INSTRUCTED HER TO CALL IF ANY PROBLEMS. ADVISED REFERRAL WILL BE SENT FOR WEDNESDAY. DCP- Discharge Planning Updated by [id number]: Jake Alvarez on 05/19/19 1:[address] Patient Name: SHERRY HOBSON Encounter No: [id number] : 1940 Primary Insurance: [employer] Anticipated DC Date: 05-19-2019 Planned Disposition: Home DCP follow-up note: CM RECEIVED ORDER FOR INPATIENT REHAB, CM SPOKE TO PT IN ROOM REGARDING [facility]IENT REHAB AT THE [facility] [place] AND LONG TERM THROUGH THE [facility]. PT REFUSED TO LET CM ATTEMPT TO SEND HIM TO THE [facility] INPATIENT OR LONG TERM REHAB. PT STATES HE WILL GO HOME AND HIS MAY PAY PRIVATELY FOR OUTPATIENT REHAB AT [facility]. PT AND SPOUSE DENIED DISCHARGE NEEDS AT THIS TIME. PT HAS CM CONTACT NUMBER AND CM INSTRUCTED PT AND SPOUSE TO CALL CM IF THERE IS ANYTHING CM CAN DO FOR THEM. PT PLANS TO DISCHARGE HOME WITH . DR. BECERRA NOTIFIED. Jake Alvarez, BETTIE MANGEMENT DCP- Discharge Planning Updated by [email or web address]: Jake Alvarez on 05/16/19 2:[address] Patient Name: SHERRY HOBSON Admission Status: ER Accout number: [id number] Admission Date: 05-15-2019 : 1940 Admission Diagnosis:SHORTNESS OF BREATH Attending: CHANTEL BECERRA Current LOS: 1 Anticipated DC Date: Planned Disposition: [facility] facility Primary Insurance: [employer] PLANNED EXTERNAL P Discharge Planning Comments: CM MET WITH PT IN ROOM TO DISCUSS DISCHARGE PLANNING AND NEEDS. PT REPORTS LIVING AT HOME INDEPENDENTLY WITH HIS . [facility]. PT HAS NO OUTSIDE SERVICES ASSISTING IN THE HOME. CM DISCUSSED AVAILABILITY OF HOME HEALTH, REHAB SERVICES AND MEDICAL EQUIPMENT. PT DENIES DISCHARGE NEEDS, IS WILLING FOR VA TRANSFER AND DOES NOT KNOW IF THE VA WAS CONTACTED. PT REPORTS BEING SENT TO THE ER FROM THE [facility]. CM CALLED [facility], , SPOKE TO YUNI WHO ADVISED THAT PT IS ALREADY ON THE TRANSFER LIST, CM UPDATED UNIT INFORMATION FOR TRANSFER IF BED BECOMES AVAILABLE. CM TO CONTINUE TO FOLLOW AND ASSIST NEEDED. Monitoring Analyst: Jake Alvarez DCP- Discharge Planning Updated by [id number]: Shayna Snyder on 05/15/19 5:[address] Patient has VA and Medicare A/B CM contacted Veronica WILKES @[phone]. Provided required information for patient and MD. Per ER MD, patient is not stable to transfer at this time. Shayna Snyder RN DCPIA - Discharge Planning Initial Assessment Updated by [id number]: Jake Alvarez on 05/16/19 2:31 pm * Is the patient Alert and Oriented? Yes * How many steps to enter\exit or inside your home? 0-O / 1-I * PCP [facility] [place] * Pharmacy [facility] * Preadmission Environment Home with Family * ADLs Independent * Equipment Cane Oxygen Walker * Other Equipment HOME AND PORTABLE OXYGEN [employer] - MEDICAL EQUIPMENT PROVIDER * List name and contact numbers for known caregivers / representatives who currently or will assist patient after discharge: JUDAH HOBSON, SPOUSE, * Verbal permission to speak to the caregivers and representatives has been obtained from the patient. N/A * Community resources currently utilized None * Please name any agencies selected above. NONE * Additional services required to return to the preadmission environment? No * Can the patient safely return to the preadmission environment? Yes * Has this patient been hospitalized within the prior 30 days at any hospital? No Coverage Notice Reviewer: [id number] Darcy Alvarez Notice Issued Date-Time: 05/22/2019 14:55 Notice Type: Patient Choice Letter Notice Delivered To: Family Member Relationship to Patient: Spouse Insulation Batting Machine Operator Name: JUDAH HOBSON Delivery Method: HAND - Hand Delivered Rika Days: Prior Verbal Notification: Recipient Understood Notice: Yes Recipient Signature: Yes Med Rec Note Co-signed by Attending: Coverage Notice Comment: Last DP export: 05/23/19 8:33 a Patient Name: SHERRY HOBSON Page [id number] at 1223 All edits/amendments must be made on the electronic document DICTATION DATE: 05/23/191221 CALCULUS PROFESSOR: RADHA 05/23/19 1222 RPT#: [id number] DC DATE: STATUS: ADM IN [facility] [address] [place] [address] END OF REPORT
--- NOTE | 2019-05-23 12:36 | NUR ---
WILL DC TODAY TO [facility]. [facility] DC'D WITH CATH INTACT. DC'D TELEMETRY. WILL DC WITH [facility]. WILL DC WITH O2 AT 4L AND WILL NEED BIPAP AT HS. [facility] AWARE OF BIPAP NEEDED. THEIR FACILITY WILL PICK HIM UP.
--- NOTE | 2019-05-23 12:58 | NUR ---
REPORT CALLED TO ALVERTO URBINA LPN AT [facility]. BIPAP MASK SENT WITH PATIENT. FACILITY VAN HERE TO PICK HIM UP AT THSI TIME. WENT IN WC PER THEIR STAFF.
== END 2019-05-23 13:00 | DRG 177 ==
LOC: D.ER 12:34 → D.M2 15:54
PROVIDERS: Family Medicine; Urology; ADMIT Internal Medicine Nephrology; ATTEND Internal Medicine Nephrology
PROC: 0T9B80Z Drainage of Bladder with Drainage Device, Via Natural or Artificial Opening Endoscopic (ICD-10-PCS; principal; 2019-05-18 22:30)
DX: J15.1 Pneumonia due to Pseudomonas (principal); J96.22 Acute and chronic respiratory failure with hypercapnia; I50.21 Acute systolic (congestive) heart failure; J96.21 Acute and chronic respiratory failure with hypoxia; N17.9 Acute kidney failure, unspecified; I13.0 Hypertensive heart and chronic kidney disease with heart failure and stage 1 through stage 4 chronic kidney disease, or unspecified chronic kidney disease; N13.8 Other obstructive and reflux uropathy; J44.0 Chronic obstructive pulmonary disease with (acute) lower respiratory infection; D64.9 Anemia, unspecified; I25.10 Atherosclerotic heart disease of native coronary artery without angina pectoris; E78.5 Hyperlipidemia, unspecified; J44.9 Chronic obstructive pulmonary disease, unspecified; I48.91 Unspecified atrial fibrillation; N18.9 Chronic kidney disease, unspecified; N40.1 Benign prostatic hyperplasia with lower urinary tract symptoms; I07.1 Rheumatic tricuspid insufficiency; I27.20 Pulmonary hypertension, unspecified